=== PATIENT | female | born 1985 | race Caucasian/White ===

== ENCOUNTER 2024-10-08 16:22 | Emergency (ER) | payer OTHER, SELFPAY ==
--- OUTSIDE RECORDS SUMMARY | 2023-03-05 05:15 | XMS_ITS | Continuity of Care Document ---
Author Organization [facility] Address [address] [place] [address] Phone Care Team Providers Care Small Equipment Operator Name Role Phone Devin Silver MD Unavailable Unavailable Procedures Procedure Date ULTRASOUND RETROPERITONEAL ( AORTA, RENAL, NODES) REAL TIME W/ DOCUMENTATION, CO Advance Directives Directive Yes / No Effective Date File Name No Information Encounters Encounter Description Practice Location Reason(s) For Visit Diagnoses Date Provider Providers Copied on Encounter [facility], [address], [place], [place], [id number], [place] tel:[phone] [facility] No Information Adrianne Beltran. [address] , [place], [place], [id number], [place]. tel:[phone] Referring Provider: Candida Junior, [address] [address], [place], [address]. tel:[phone] Family History Family Member Type Diagnosis Age At Onset No Information Payers Payer name Insurance type Covered green party ID Authoriza tion(s) R [facility] [id number] Social History Type Description Quantity Date Captured Comments Sex Female Smoking Status No Information Chief Complaint And Reason For Visit No Information Reason For Referral Reason For Referral No Information History Of Present Illness Encounter Date Complaint History Of Prese nt Illness No Information Functional Status Date Functional Assessmen t No Information Instructions Date Instruction Additional Infor mation No Information Assessments Type Assessment Date No Information Patient Care Teams Name Effective Dates (start - stop) Status Members No Information
--- OUTSIDE RECORDS SUMMARY | 2024-10-08 16:24 | XMS_ITS | Continuity of Care Document ---
Author Name [facility] Organization [facility] Care Team Providers Care Disability Coordinator Name Role Phone [facility] Unavailable Unavailable Social History Combined list of available smoking, tobacco, and other social history from Department of Defense and Veterans Affairs facilities. Social History Type Response Date Comment Sourc e This section is an empty social history section. DoD
--- OUTSIDE RECORDS SUMMARY | 2024-10-08 16:24 | XMS_ITS | Continuity of Care Document ---
Author Name [facility] Organization [facility] Care Team Providers Care Manager Fine Dining Name Role Phone [facility] Unavailable Unavailable Social History Combined list of available smoking, tobacco, and other social history from Department of Defense and Veterans Affairs facilities. Social History Type Response Date Comment Sourc e This section is an empty social history section. DoD
--- OUTSIDE RECORDS SUMMARY | 2024-10-08 16:26 | XMS_ITS | Clinical Summary ---
Author Organization [facility] Address [address], [facility] [address] [place] [address] Phone Care Team Providers Care Bone Char Kiln Tender Name Role Phone Karyn Patterson Ha PECK, SILK EXAMINER Primary Care Provide r Guicho Mcintosh DO Unavailable [phone] Chucho Herron MD Unavailable [phone] Allergies Active Allergy Reactions Criticality Noted Date Comments Azithromycin Nausea,Other (see Comments) Low 03/18/2018 GI upset Montelukast Other (see Comments) Low 03/18/2018 Possible allergy- pt not sure Prednisone Other (see Comments) Low 01/03/2019 Bloody stool and stomach cramps Medications Etanercept (Enbrel SureClick) 50 MG/ML Solution Auto-injector 11/19/2021 Activ e Cyanocobalamin (VITAMIN B-12) 1000 MCG Tablet Take 1,000 mcg by mouth. Active clobetasol (TEMOVATE) 0.05 % Cream 11/02/2018 Active Cetirizine HCl 10 MG Capsule Take by mouth. Active TURMERIC-CARMEN PO Take by mouth. Active MAGNESIUM PO Take by mouth. Active Ascorbic Acid (VITAMIN C PO) Take by mouth. Active Pyridoxine HCl (B-6 PO) Take by mouth. Active Active Problems Problem Noted Date Diagnosed Date Anxiety 07/08/2022 Asthma 07/08/2022 Neuropathy 07/08/2022 Seasonal allergic rhinitis due to pollen 022 RA (rheumatoid arthritis) 07/23/2021 Gastroesophageal reflux disease 01/02/2019 Environmental and seasonal allergies 01/02/2019 Immunizations Immunization Administration Dates Next Due Influenza Vaccine, Quadrivalent, PF 01/10/2021,1 02/27/2018 TDAP Vaccine 01/10/2021 Family History Relation Name Status Comments Brother Alive Father Alive Mother Alive Sister Alive Social History Tobacco Use Types Packs/Day Years Used Date Smoking Tobacco: Never Smokeless Tobacco: Never Tobacco Cessation:Counseling Given: No Alcohol Use Standard Drinks/Week Comments Not Currently 0 (1 standard drink = 0.6 oz pur e alcohol) Sexually Active Control Partners Comments Yes Comments Unknown Sex and Gender Information Value Date Recorded Sex Assigned at Not on file Legal Sex Female 3:48 PM CDT Gender Identity Not on file Sexual Orientation Not on file Last Filed Vital Signs Vital Sign Reading Time Taken Comments Blood Pressure 120/72 04/29/2023 2:44 PM CDT Pulse 90 04/29/2023 2:44 PM CDT Temperature 36.3 C (97.3 F) 04/29/2023 2:44 PM CDT Respiratory Rate 18 04/29/2023 2:44 PM CDT Oxygen Saturation 99% 04/29/2023 2:44 PM CDT Inhaled Oxygen Concentration - - Weight 80.5 kg (177 lb 8 oz) 04/29/2023 2:44 PM CDT Height 152.4 cm (5') 04/29/2023 2:44 PM CDT Body Mass Index 34.67 04/29/2023 2:44 PM CDT Plan of Treatment Health Maintenance Due Date Last Done Comments Hepatitis C Virus (HCV) Screening 1986 Hepatitis B Immunization (1 of 3 - 19+ 3-dose series) 2005 Pneumococcal Immunization Combined (1 of 2 - PCV) 2005 Pap Smear 2007 Human Papillomavirus (HPV) Immunization (1 - 3-dose SCDM series) 2013 Cervical Cancer Screening (CCS) 2016 HPV/Cotest 2016 SARS-COV-2 Immunization (3 - Pfizer risk series) 07/09/2020 06/11/2020, 05/17/2020 Influenza Immunization (#1) 2024 12/0 04/2020, 12/28/2018 Td Immunization Every 10 Yea rs (Adults With 1 Tdap) 01/10/2031 01/10/2021 Respiratory Syncytial Virus (RSV) Immunization (Adult) (1 - 1-dose 75+ series) 2061 DTaP/Tdap/Td Immunization Discontinued 01/10/2021 Meningococcal Immunization (ACWY) Aged Out No longer eligible based on patient's age to complete this topic Rotavirus Immunization Aged Out No lo nger eligible based on patient's age to complete this topic Insurance Care Teams Bone Char Kiln Tender Relationship Specialty Start Date End Date Karyn Patterson, HEAD STILL OPERATOR, SILK EXAMINER [address] [address] PCP - General Advanced Practice Nurse 06/15/22 Guicho Mcintosh DO [address] [place] [id number] Consulting Physician Oncology 06/15/22 Chucho Herron MD [address] [id number] Referring Provider Neuromuscular Medicine 06/15/22
--- OUTSIDE RECORDS SUMMARY | 2024-10-08 16:27 | XMS_ITS | Clinical Summary ---
Author Organization [facility] Address [address] [facility] [place] [address] Care Team Providers Care Senior Environmental Technician Name Role Phone LeonardoKaryn perry RADIO EQUIPMENT INSTALLER-BIN WORKER Primary Care Provider Source Comments [facility],non-owned Affiliates and Associated Physician Practices is amultiple site organization consisting of ambulatory clinics and hospital sitesin [place], [place], [place] and [place]. This disclosure is being madepursuant to the Care Everywhere program and may not contain all information available regarding this patient. Last updated 17.[facility] Thubrikar Aortic Valve Social History Tobacco Use Types Packs/Day Years Used Date Smoking Tobacco: Never Assessed PHQ-2 Answer Date Recorded PHQ2 TOTAL SCORE 0 05/19/2022 Comments Unknown Sex and Gender Information Value Date Recorded Sex Assigned at Not on file Legal Sex Female 4:13 PM WARRANTY CLERK Gender Identity Not on file Sexual Orientation Not on file Plan of Treatment Health Maintenance Due Date Last Done Comments HIV SCREENING 2001 HEPATITIS C SCREENING 02/28/2004 DTAP/TDAP/TD VACCINES (1 - Tdap) 2005 HEPATITIS B VACCINE (1 of 3 - 19+ 3-dose series) 2005 PAP SMEAR 2007 HPV VACCINE (1 - 3-dose SCDM series) 2013 COVID-19 VACCINE (2023-2 5 season) 2023 06/11/2020, 05/17/2020 DEPRESSION SCREENING 02/09/2024 05/19/2022 INFLUENZA VACCINE (#1) 2024 , 12/28/2018 ZOSTER VACCINE (1 of 2) 2036 HIB VACCINE Aged Out No longer eligi ble based on patient's age to complete this topic MENINGOCOCCAL (Group B) VACCINE SHARED DECISION-MAKING Aged Out No longer eligible based on patient's age to complete this topic MENINGOCOCCAL GROUPS A/C/Y/W VACCINE Aged Out No longer eligible b ased on patient's age to complete this topic PNEUMOCOCCAL VACCINE Aged Out No long er eligible based on patient's age to complete this topic Care Teams Senior Environmental Technician Relationship Specialty Start Date End Date Karyn Patterson, RADIO EQUIPMENT INSTALLER-BIN WORKER [address] [facility], [address] [place] [address] PCP - General 03/03/22
--- OUTSIDE RECORDS SUMMARY | 2024-10-08 16:27 | XMS_ITS | Clinical Summary ---
Author Organization [facility] Address [address] [place] [address] Care Team Providers Care Disability Liaison Officer Name Role Phone Karyn Patterson NP Primary Care Provide r Allergies Active Allergy Reactions Criticality Noted Date Comments Azithromycin Stomach upset Low 03/18/2018 Dried Beans/Legumes Stomach upset High 04/09/2022 Down a couple of days with stomach upset Montelukast Other (See comments) Low 03/18/2018 Possible allergy- pt not sure Peanut Oil Anaphylaxis High 06/15/2018 Prednisone Other (See comments) Low 01/03/2019 Bloody stool and stomach cramps Medications albuterol HFA (PROVENTIL HFA,VENTOLIN HFA,PROAIR HFA) 90 mcg/actuation inhaler Inhale 2 puffs every 6 (six) hours as needed for wheezing Active fluticasone propionate (FLONASE) 50 mcg/actuation nasal spray Administer 1 spray into each nostril daily Active acetaminophen-a spirin-caffeine (EXCEDRIN MIGRAINE) 250-250-65 mg per tablet Take 1 tablet by mouth every 6 (six) hours as needed Active cyanocobalamin (Vitamin B-12) 1,000 mcg tabletIndicatio ns:Prevention of Vitamin B12 Deficiency Take 1 tablet (1,000 mcg total) by mouth daily Active [id number]-is a-epa-fish oil 400 mcg-35 mg -25 mg-5 mg tablet,chewable Take by mouth Active pyridoxine (VITAMIN B-6) 500 mg tablet Take 1 tablet (500 mg total) by mouth daily Active acetaminophen (TYLENOL) 500 mg tablet Take 2 tablets (1,000 mg total) by mouth every 6 (six) hours as needed Active etanercept (EnbreL SureClick) 50 mg/mL (1 mL) pen injector 2 Active EPINEPHrine 0.3 mg/0.3 mL auto-injection syringeIndicati ons:Anaphylaxis Inject 0.3 mL (0.3 mg total) into the muscle as instructed as needed for anaphylaxis for up to 1 day 1 each 1 2 Active Additional Information Patient not taking.Reported on 10/29/2023 azelastine (ASTELIN) 137 mcg (0.1 %) nasal spray Administer 2 sprays into each nostril 2 (two) times a day Use in each nostril as directed 120 mL 2 2 Active Additional Information Patient taking differently:2 spray each nostrilAs needed, Use in each nostril as directed, Reported on 10/29/2023 TURMERIC ROOT-CARMEN ROOT EXT ORAL Take 1 capsule by mouth daily Active ascorbic acid (VITAMIN C) 250 mg tablet Take 2 tablets (500 mg total) by mouth daily Active cetirizine 10 mg capsule Take by mouth Activ e Active Problems Problem Noted Date Diagnosed Date Uncomplicated asthma 01/08/2022 Non-seasonal allergic rhinitis due to fungal spo res 01/08/2022 Seasonal allergic rhinitis due to pollen 022 Food intolerance 01/08/2022 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 Seronegative arthritis 01/03/2019 Social History Tobacco Use Types Packs/Day Years Used Date Smoking Tobacco: Never Passive Smoke Exposure: Past Tobacco Cessation:Counseling Given: Not Answered Alcohol Use Standard Drinks/Week Comments Not Currently 0 (1 standard drink = 0.6 oz pur e alcohol) Personal Safety Answer Date Recorded Getting School Help Needed Not on file 01/30 Comments Unknown Sex and Gender Information Value Date Recorded Sex Assigned at Not on file Legal Sex Female 3:42 PM BLIND ESCORT Gender Identity Not on file Sexual Orientation Not on file Obstetrics History Last Filed Vital Signs Vital Sign Reading Time Taken Comments Blood Pressure 120/76 10/29/2023 10:53 AM CDT Pulse 78 10/29/2023 10:53 AM CDT Temperature 37.1 C (98.8 F) 10/29/2023 10:53 AM CDT Respiratory Rate - - Oxygen Saturation 96% 10/29/2023 10: 53 AM CDT Inhaled Oxygen Concentration - - Weight 78.4 kg (172 lb 14.4 oz) 024 10:53 AM CDT Height 152.4 cm (5') 10/29/2023 10:53 AM CDT Body Mass Index 33.77 10/29/2023 10:53 AM CDT Plan of Treatment Health Maintenance Due Date Last Done Comments Cervical Cancer Screening 1986 Depression Screening 1986 Hepatitis C Screening 1986 Varicella Vaccines (1 of 2 - 13+ 2-dose series) 1999 Hepatitis B Screening 2004 Regular Well Visit/Exam 18-64 2004 Pneumococcal vaccine <65 (1 of 2 - PCV) 2005 HPV Vaccines (1 - 3-dose SCDM series) 2013 Covid-19 Vaccine ( - season) 10/10/202305/2020, 05/17/2020 Influenza Vaccine (#1) 2024 01/10/2021, 2018 DTaP/Tdap/Td Vaccine (2 - Td or Tdap) 01/10/203104/2020 Insurance [facility] HMO/PPO Address: [facility] [id number] [place] [id number] [facility] H[facility]/PPO Address: [address] [address] Care Teams Disability Liaison Officer Relationship Specialty Start Date End Date Karyn Patterson NP [address] [address] PCP - General Nurse Practitioner 11/28/18
--- NOTE | 2024-10-08 16:29 | ED_ITS ---
HPI - URI/Sore Throat General Chief Complaint: Upper Respiratory Infection Stated Complaint: cold symptoms Patient presents to the [facility] accompanied by spouse with complaints of worsening sinus and upper respiratory that started 1 week ago. Patient noted the 1st couple days of symptoms she did also notice a low-grade fever but this has resolved. Patient reports significant sinus pressure, nasal congestion, nasal drainage, sore throat, pressure in ears, headache, wet cough, and shortness of breath. Patient reports taking daily Zyrtec, adding Flonase and albuterol inhaler as needed with some relief of symptoms. Patient reports she was scheduled this week to take her Enbrel and she did not take that dosing this week as well. Denies dizziness, drainage from ears, difficulty swallowing, nausea, vomiting, diarrhea. Related Data Home Medications ?Medication ?Instructions ?Recorded ?Confirmed ?Last Taken ?Type etanercept 50 mg/mL (1 mL) mg subcut 10/08/24 Unknown History subcutaneous pen injector (Enbrel SureClick) Allergies Allergy/AdvReac Type Severity Reaction Status Date / Time peanut Allergy Severe Anaphylactic Verified 10/08/24 16:33 Shock Review of Systems Constitutional: Constitutional: Reports as per HPI, Denies chills, Reports fatigue, Reports fever(s) and Denies weakness Eyes: Eyes: Reports no additional eye complaints ENT: Reports as per HPI, Denies vertigo, Denies dizziness, Reports nasal con gestion and Reports sore throat Cardiovascular: Cardiovascular: Reports no additional cardiovascular complaints Respiratory: Respiratory: Reports as per HPI, Reports chest congestion, Reports cough, Denies dyspnea and Denies wheezing Gastrointestinal: Gastrointestinal: Reports as per HPI, Denies abdominal pain, Denies diarrhea, Denies nausea and Denies vomiting Genitourinary: Genitourinary: Reports no additional female genitourinary complaints Musculoskeletal: Musculoskeletal: Reports as per HPI and Denies myalgias Integumentary/Breasts: Skin/Breast: Reports as per HPI, Denies erythema and Denies rash Neurologic: Reports as per HPI, Denies vertigo, Denies dizziness, Reports headache(s), Denies focal weakness, Denies numbness and Denies weakness Psychiatric: Psychiatric: Reports no additional psychiatric complaints Endocrine: Endocrine: Reports no additional endocrine complaints Hematologic/Lymphatic: Hematologic/Lymphatic: Reports no additional hematologic/lymphatic complaints Allergic/Immunologic: Allergic/Immunologic: Reports as per HPI Comments: Seasonal allergy Exam Const: General: healthy appearing and no acute distress Nutritional Appearance: well nourished Orientation/consciousness: patient oriented x3 Limitations: no limitations HENMT: Head: normal to inspection Ears: external ears normal and TM's abnormal bilaterally ( right TM cloudy/yellow fluid no erythema, loss of bony landmarks noted) Face/Nose/Sinus: Normal external nose present and nares abnormal ( erythema and minimal edema noted.) Face and sinus: normal facial exam and sinus tenderness ( Bilateral) maxillary Mouth: Yes Normal oral and palatal mucosa present, Yes lip normal and Yes moist mucous membranes Throat: posterior oropharynx abnormal ( moderate erythema) Other: left TM normal Neck: Neck: normal visual inspection and no lymphadenopathy Resp: Effort & Inspection: normal respiratory effort Auscultation: clear to auscultation bilaterally Other: percussion normal Cardio: Rate: regular rate Rhythm: regular rhythm Skin: General skin exam: normal color Rashes: no rashes Wounds: no wounds Neuro: General: patient oriented x3 and moves all extremities Speech: normal speech Gait exam (Neuro): Normal gait present Psych: Mental Status: mental status grossly normal Affect: normal affect Attitude: cooperative Course Course Level of Care: Express Care Visit MDM - URI/Sore Throat MDM Narrative Medical decision making narrative: recommend continue to skip your Enbrel and speak with your provider about when to start this again. The patient was evaluated by myself in the express care. History is obtained from patient who is an independent historian and physical exam was performed. Available medical records were reviewed at this time. Exam findings show no acute concerns or changes; patient is non-toxic appearing and is in no distress. Patient is appropriate for outpatient treatment and follow-up. I have evaluated and discussed social determinants of health with the patient that could potentially impact subsequent diagnosis and treatment plans. Differential diagnosis and treatment plan were discussed with the patient. Patient agrees with discussion and after shared medical decision making agrees with plan of care. All questions were answered to the patient's satisfaction. Differential Diagnosis Differential diagnosis: Likely upper respiratory infection, otitis media, sinusitis, viral infection, influenza and pharyngitis Medical Records Attestation: I reviewed the patient's medical records. Discharge Plan Discharge Clinical Impression: Sinusitis Patient Disposition: Home Condition: Stable Instructions: Antibiotic Form, Sinusitis (ED) Additional Instructions: Return to urgent care or go to the ER for new or worsening symptoms. Continue to take Tylenol or Motrin for pain. Use a humidifier or vaporizer at night. Take Medications as prescribed. Drink plenty of water. 8-10 glasses per day. Use flonase 2 times per day for 5 days then as needed Take mucinex 2 times per day and be sure to take with 8oz of water. Follow up with Primary provider if not getting better. Take the full dose of steroids as directed to decrease inflammation and open up sinus and airway. start these tomorrow since we were later in the day. Increase water intake to 8-10 glasses per day. take the antibiotics as directed. When taking antibiotics use a daily pro biotic or yogurt daily to help with diarrhea and upset stomach. Patient Language: Danish Prescriptions: New amoxicillin-pot clavulanate 875-125 mg tablet 1 tablet PO Q12H Qty: 20 0RF Rx Instructions: Take with food methylprednisolone [Medrol (Watson)] 4 mg tablets,dose pack See Rx Instructions .ROUTE .COMPLEX Qty: 21 0RF Rx Instructions: for 6 days No Action Enbrel SureClick 50 mg/mL (1 mL) pen injector SUBCUT Follow-up/Referrals: Leonardo,Karyn Wills APN [Primary Care Provider] Time of Disposition: 16:50
--- OUTSIDE RECORDS SUMMARY | 2024-10-08 16:30 | XMS_ITS | Encounter Summary ---
Author Organization [facility] Address [facility] [place] [address] Care Team Providers Care Car Retarder Operator Name Role Phone Karyn Patterson [facility] Primary Care Provider + Chucho Herron MD Unavailable [phone] Verona Courtney PT Unavailable Encounter Details Date Type Department Care Team (Late st Contact Info) Description 07/31/2020 X2TV Message [facility] [address] [place] [address] Karyn Patterson, [facility] [address] [facility] [address] [place] [address] RE: Follow Up/Update Social History Tobacco Use Types Packs/Day Years Used Date Smoking Tobacco: Never Smokeless Tobacco: Never Alcohol Use Standard Drinks/Week Comments No 0 (1 standard drink = 0.6 oz pur e alcohol) OCCASIONAL AUDIT-C Answer Date Recorded Frequency of Alcohol Consumption Never 01/02/2019 Average Number of Drinks Not on file 019 Frequency of Binge Drinking Not on file 12/10 PHQ-2 Answer Date Recorded PHQ-2 Score - If the patient scores above 3, please move on to questions 3-9 0 05/30/2020 Comments No Sex and Gender Information Value Date Recorded Sex Assigned at Female 03/01/2024 8:58 AM BAIL BONDING AGENT Legal Sex Female 5:04 PM BAIL BONDING AGENT Gender Identity Not on file Sexual Orientation Not on file documented as of this encounter Functional Status * RETIRED Are you deaf or do you have serious difficulty hearing Answer Date of Assessment Author Status No 05/05/2019 11:42 AM CDT Acti ve * RETIRED Are you blind or do you have serious difficulty seeing, even when wearing glasses? Answer Date of Assessment Author Status No 05/05/2019 11:42 AM CDT Acti ve * Do you have serious difficulty walking or climbing stairs? Answer Date of Assessment Author Status No 05/05/2019 11:42 AM CDT Alethea Mercedes RN Active * Do you have difficulty dressing or bathing? Answer Date of Assessment Author Status No 05/05/2019 11:42 AM ZEFERINOT Alethea Mercedes RN Active * Because of a physical, mental, or emotional condition, do you have difficulty doing errands alone such as visiting a doctor's office or shopping? Answer Date of Assessment Author Status No 05/05/2019 11:42 AM CDT Alethea Mercedes RN Active documented as of this encounter Mental Status * Because of a physical, mental, or emotional condition, do you have serious difficulty concentrating, remembering, or making decisions? Answer Entry Date Author Status No 05/05/2019 11:42 AM CDT Alethea Mercedes RN Active documented in this encounter Plan of Treatment Upcoming Encounters Date Type Department Care Team (Late st Contact Info) Description 10/18/2024 9:00 AM CDT Appointment [facility] [address] [place] [address] Carmelo Curiel MD [address] [facility] [address] [place] [address] 11/15/2024 9:00 AM CDT Appointment [facility] [address] [place] [address] Carmelo Curiel MD [address] [address] 11/21/2024 9:00 AM CDT Office Visit [facility] Multispecialty Care - [facility] [address] [facility], [address] [place] [address] Chucho Herron MD [address] [place] [address] 12/13/2024 9:00 AM BAIL BONDING AGENT Appointment [facility] [address] [place], [place] [address] Carmelo Curiel MD [address] [facility] [address] [place] [address] documented as of this encounter Visit Diagnoses Not on filedocumented in this encounter Additional Health Concerns Infection Onset Date Last Indicated Resolved Time COVID-19 Rule Out 07/24/2021 07/24/2021 07/24/2021 10:22 AM CDT COVID-19 Rule Out 04/16/2023 04/16/2023 04/16/2023 10:43 AM BAIL BONDING AGENT Influenza - Seasonal 04/16/2023 04/16/2023 024 12:32 AM CDT documented as of this encounter Care Teams Car Retarder Operator Relationship Specialty Start Date End Date Karyn Patterson, [facility]- [address]01 [facility], [facility] [address] [place], [place] [id number] PCP - General NURSE PRACTITIONER 03/11/18 Chucho Herron MD [address] [place] [address] Physician NEUROMUSCULOSKELETAL MEDICINE 02/08/22 Verona Courtney, PT [address] [place], [place] [address] Physical Therapist PHYSICAL THERAPY 09/01/22 11/07/22 documented as of this encounter
--- OUTSIDE RECORDS SUMMARY | 2024-10-08 16:30 | XMS_ITS | Encounter Summary ---
Author Organization [facility] Address [facility] [place] [address] Care Team Providers Care Domestic Housekeeper Name Role Phone Karyn Patterson [facility] Primary Care Provider + Chucho Herron MD Unavailable [phone] Encounter Details Date Type Department Care Team (Late st Contact Info) Description 07/13/2024 [employer] Message [address] [phone] Karyn Patterson, [facility] [address]01 [facility] [address] [place] [address] can I have new blood tests ordered? Social History Tobacco Use Types Packs/Day Years Used Date Smoking Tobacco: Never Passive Smoke Exposure: Never Smokeless Tobacco: Never Alcohol Use Standard Drinks/Week Comments Yes 0 (1 standard drink = 0.6 oz pur e alcohol) OCCASIONAL AUDIT-C Answer Date Recorded Frequency of Alcohol Consumption Never 01/02/2019 Average Number of Drinks Not on file 019 Frequency of Binge Drinking Not on file 12/10 PHQ-2 Answer Date Recorded Patient Health Questionnaire-2 Score 0 06/05/2024 Comments No Sex and Gender Information Value Date Recorded Sex Assigned at Female 03/01/2024 8:58 AM AUTOMOTIVE PAINTER Legal Sex Female 5:04 PM AUTOMOTIVE PAINTER Gender Identity Not on file Sexual Orientation Not on file documented as of this encounter Functional Status * RETIRED Are you deaf or do you have serious difficulty hearing Answer Date of Assessment Author Status No 01/24/2021 1:47 PM AUTOMOTIVE PAINTER Activ e * RETIRED Are you blind or do you have serious difficulty seeing, even when wearing glasses? Answer Date of Assessment Author Status No 01/24/2021 1:47 PM AUTOMOTIVE PAINTER Activ e * Do you have serious difficulty walking or climbing stairs? Answer Date of Assessment Author Status No 01/24/2021 1:47 PM Mitali Brito, ARLEN Active * Do you have difficulty dressing or bathing? Answer Date of Assessment Author Status No 01/24/2021 1:47 PM Mitali Brito RN Active * Because of a physical, mental, or emotional condition, do you have difficulty doing errands alone such as visiting a doctor's office or shopping? Answer Date of Assessment Author Status No 01/24/2021 1:47 PM Mitali Brito RN Active documented as of this encounter Mental Status * Because of a physical, mental, or emotional condition, do you have serious difficulty concentrating, remembering, or making decisions? Answer Entry Date Author Status No 01/24/2021 1:47 PM Mitali Brito, RN Active documented in this encounter Progress Notes * Myra Malik RN - 07/17/2024 1:50 PM CDT -C-Reactive protien, -SED rate, erythrocyte (ESR) -Rheumatoid Factor, Quant -Pregnenolone, LC/MS/MS -DHT Dihydrotestosterone -Sex hormone binding globulin -FSH, follicle stim hormone -Insulin, Total -DHEA-sulfate -Testosterone, free and total -Progesterone -Estradiol -Prolactin -Comprehensive Metabolic Panel documented in this encounter Plan of Treatment Upcoming Encounters Date Type Department Care Team (Late st Contact Info) Description 10/18/2024 9:00 AM CDT Appointment [facility] [address] [place] [address] Carmelo Curiel MD [address] [facility] [address] [place] [address] 11/15/2024 9:00 AM CDT Appointment [facility] [address] [place] [address] Carmelo Curiel MD [address]01 [facility] [address] [place] [address] 11/21/2024 9:00 AM CDT Office Visit [facility] Medical Group Multispecialty Care - [facility] [address] [facility], [address] [place] [phone] Chucho Herron MD 3 [place] [address] 12/13/2024 9:00 AM AUTOMOTIVE PAINTER Appointment [facility] [address] [place] [address] Carmelo Curiel MD [address] [facility] [address] [place], [place] [phone] documented as of this encounter Results * (ABNORMAL) COMPREHENSIVE METABOLIC PANEL (07/19/2024 10:29 AM CDT) [facility] GLUCOSE 88 70 - 99 MG/DL 07/19/2024 1:04 PM CDT [facility] BUN 13 7 - 18 MG/DL 07/19/2024 1:04 PM CDT [facility] CREATININE S/P/B 0.90 0.55 - 1.02 MG/DL 07/19/2024 1:04 PM CDT [facility] SODIUM S/P/B 142 136 - 145 MMOL/L 07/19/2024 1:04 PM CDT [facility] POTASSIUM S/P/B 4.3 3.5 - 5.1 MMOL/L 07/19/2024 1:04 PM [facility] CHLORIDE S/P/B 103 100 - 108 MMOL/L 07/19/2024 1:04 PM [facility] CO2 32.7(H) 21 - 32 MMOL/L 07/19/2024 1:04 PM [facility] CALCIUM S/P/B 8.9 8.5 - 10.1 MG/DL 07/19/2024 1:04 PM [facility] BILIRUBIN TOTAL S/P/B 0.5 0.2 - 1.2 MG/DL 07/19/2024 1:04 PM [facility] Comment: THIS ASSAY IS NOT RECOMMENDED FOR PATIENTS UNDERGOING TREATMENT WITH ELTROMBOPAG DUE TO THE POTENTIAL FOR FALSELY ELEVATED RESULTS. TOTAL PROTEIN S/P/B 7.7 6.4 - 8.2 G/DL 07/19/2024 1:04 [facility] ALBUMIN S/P/B 3.8 3.4 - 5.0 G/DL 07/19/2024 1:04 PM [facility] AST 11(L) 15 - 37 U/L 07/19/2024 1:04 PM [facility] ALT 18 14 - 55 U/L 07/19/2024 1:04 PM [facility] ALKALINE PHOSPHATASE S/P/B 74 50 - 136 U/L 07/19/2024 1:04 PM [facility] ANION GAP 6.3 5 - 15 MMOL/L 07/19/2024 1:04 [facility] BUN CREATININE RATIO 14.4 6 - 26 07/19/2024 1:04 PM [facility] A/G RATIO 1.0 1.0 - 2.0 RATIO 07/19/2024 1:04 PM CDT [facility] GFR ESTIMATE 84(L) >90 ML/MIN/1.7 3 M2 07/19/2024 1:04 PM CDT [facility] Comment: NOTE: eGFR is not calculated for patients <18 years of age. This is an estimated GFR calculation using the new CKD EPI creatinine equation without race and so does not require a correction factor for race. This estimated GFR should not be used for calculating drug doses. 07/19/2024 10:2 9 AM CDT Karyn Bonner Leonardo [facility] Final Re sult [facility] [address] [place] [address], [place] [phone] * PROLACTIN (07/19/2024 10:29 AM CDT) PROLACTIN 3.8 NG/ML 07/19/2024 8:17 PM CDT [facility] Comment:FEMALE REFERENCE RAN GE (NON-): 4.8-23.3 07/19/2024 10:2 9 AM CDT [facility] Leonardo [facility] Final Re sult [facility] [address] [place] [address], [place] [phone] * ESTRADIOL (07/19/2024 10:29 AM CDT) ESTRADIOL (E2) 33 see note pg/mL 07/21/2024 10:16 PM CDT [facility] THOMAS BROWN Comment: Unable to flag abnormal result(s), please refer to reference range(s) below: Females: Follicular Phase: 19 - 144 pg/mL Mid-Cycle: 64 - 357 pg/mL Luteal Phase: 56 - 214 pg/mL Post-Menopausal: <= 31 pg/mL Reference range established on post-pubertal patient population. No pre-pubertal reference range established using this assay. For any patients for whom low Estradiol levels are anticipated (e.g. males, pre-pubertal children, and hypogonadal/post-menopausal females), the [employer] Estradiol, Ultrasensitive, LCMSMS assay is recommended (order code 99468). Please note: Patients being treated with the drug fulvestrant [Faslodex(R)] have demonstrated significant interference in immunoassay methods for estradiol measurement. The cross reactivity could lead to falsely elevated estradiol test results leading to an inappropriate clinical assessment of estrogen status. [employer] order code [id number], Ultrasensitive LC/MS/MS demonstrates negligible cross reactivity with fulvestrant. Test Performed by [facility] [employer], [address] [place] [address] Kumar Hough M.D., Ph.D., Director of Laboratories , CLIA [id number] 07/19/2024 10:2 9 AM CDT Karyn Patterson [facility] Final Re sult [facility] [address] [place] [phone], * PROGESTERONE (07/19/2024 10:29 AM CDT) PROGESTERONE 0.9 see note ng/mL 07/21/2024 10:16 PM CDT [facility] Comment: Unable to flag abnormal result(s), please refer to reference range(s) below: Female: Follicular Phase <1.0 ng/mL Luteal Phase 2.6 - 21.5 ng/mL Post Menopausal <0.5 ng/mL : 1st Trimester 4.1 - 34.0 ng/mL 2nd Trimester 24.0 - 76.0 ng/mL 3rd Trimester 52.0 -302.0 ng/mL Test Performed by [facility] [employer], [address] [place] [address] Kumar Hough M.D., Ph.D., Director of Laboratories , CLIA [id number] 07/19/2024 10:2 9 AM CDT Karyn Riceegler [facility] Final Re sult [facility] [address] [place], [place] , [place] [phone] * INSULIN,TOTAL (07/19/2024 10:29 AM CDT) INSULIN 7.4 <=18.4 uIU/mL 07/21/2024 10:16 PM CDT [facility] [employer] THOMAS LY Comment: Risk: Optimal < or = 18.4 Moderate NA High >18.4 Adult cardiovascular event risk category cut points (optimal, moderate, high) are based on Insulin Reference interval studies performed at [employer] in 2021. Test Performed by [facility], [employer] [place], [address] [place] [address] Kumar Hough M.D., Ph.D., Director of Laboratories , CLIA [id number] 07/19/2024 10:2 9 AM CDT Karyn Ha Patterson [facility] Final Re sult Performing Organization Address City/[facility]/ZIP Co de Phone Number [facility] [address] [place], [place] , [place] [phone] * FSH, FOLLICLE STIM HORMONE (07/19/2024 10:29 AM CDT) FSH 7.3 MIU/ML 07/19/2024 8:17 PM CDT [facility] Comment: REFERENCE RANGES FOR FEMALES: FOLLICULAR 3.5-12.5 MID-CYCLE 4.7-21.5 LUTEAL 1.7-7.7 POSTMENOPAUSAL 25.8-134.8 07/19/2024 10:2 9 AM CDT Karyn Riceegler [facility] Final Re sult [facility] [address] [place] [address], [place] [phone] * SEX HORMONE BINDING GLOBULIN (07/19/2024 10:29 AM CDT) SEX HORMONE BINDING GLOBULIN 35 17 - 124 nmol/L 07/22/2024 12:00 PM CDT [employer] THOMAS BROWN Comment: Test Performed by [facility], [address] [place], [place] Kumar Hough M.D., Ph.D., Director of Laboratories , [place] [id number] 07/19/2024 10:2 9 AM CDT Karyn Bonner Leonardo [facility] Final Re sult Performing Organization Address [facility] Co de Phone Number [employer] [place] [address] [place] [address], [place] [phone] * DIHYDROTESTOSTERONE, DHT (07/19/2024 10:29 AM CDT) DIHYDROTESTOSTERONE LCMSM 9 < OR = 20 ng/dL 07/27/2024 12:02 AM CDT [employer] JEWELS AMAYA Comment: This test was developed and its analytical performance characteristics have been determined by [employer]. It has not been cleared or approved by the FDA. This assay has been validated pursuant to the CLIA regulations and is used for clinical purposes. Test performed by [facility] [place] [address] [place] [address] Director Of Sales Marketing: Selene Flores MD,PHD,DELFINO Test Reported by [facility] [place], [address] [place] [address] Kumar Hough M.D., Ph.D., Director of Laboratories , CLIA [id number] 07/19/2024 10:2 9 AM CDT Karyn M Leonardo [facility] Final Re sult Performing Organization Address [facility] Co de Phone Number [employer] [place] [phone] [place], [place] , * PREGNENOLONE, LC/MS/MS (07/19/2024 10:29 AM CDT) PREGNENOLONE 116 22 - 237 ng/dL 07/29/2024 2:23 PM CDT [facility] STEPHANIE Comment: This test was developed and its analytical performance characteristics have been determined by [employer]. It has not been cleared or approved by the FDA. This assay has been validated pursuant to the CLIA regulations and is used for clinical purposes. Test performed by [employer] [place] [address] [place] [address] Director Of Sales Marketing: Selene Flores MD,PHD,DELFINO Test Reported by [facility] [employer] [place], [address] [place] [address] Kumar Hough M.D., Ph.D., Director of Laboratories , CLIA [id number] 07/19/2024 10:2 9 AM CDT Karyn Patterson [facility] Final Re sult Performing Organization Address City/[facility]/ZIP Co de Phone Number [employer] [facility] [address] [place] [address], [place] [phone] * RHEUMATOID FACTOR, QUANT (07/19/2024 10:29 AM CDT) RHEUMATOID FACTOR <10 <15 IU/ML 07/19/2024 8:17 PM CDT [facility] 07/19/2024 10:2 9 AM CDT Karyn Bonner Leonardo [facility] Final Re sult [facility] [address] [place] [address], [place] [phone] * SED RATE, ERYTHROCYTE (ESR) (07/19/2024 10:29 AM CDT) ESR 4 <20 MM/HR 07/19/2024 12:27 PM CDT [facility] 07/19/2024 10:2 9 AM CDT Karyn Bonner Leonardo [facility] Final Re sult [facility] [address] [place] [address], [place] [phone] * (ABNORMAL) C-REACTIVE PROTEIN (07/19/2024 10:29 AM CDT) C-REACTIVE PROTEIN 0.30(H) <0.3 mg/dL 07/19/2024 1:04 PM CDT [facility] 07/19/2024 10:2 9 AM CDT Karyn Riceegler [facility] Final Re sult [facility] [address] [place] [address], documented in this encounter Visit Diagnoses Diagnosis Fatigue, unspecified type- Primary Perimenopausal Symptomatic menopausal or female climacteric states documented in this encounter Additional Health Concerns Assessment Noted Time PHQ-9 Depression Total Score: 12 05/13/ 022 2:49 PM CDT documented as of this encounter Care Teams Domestic Housekeeper Relationship Specialty Start Date End Date Karyn Patterson, SENIOR ARCHITECTURAL DESIGNER- [address] [facility], [address] [place] [address] PCP - General NURSE PRACTITIONER 03/11/18 Chucho Herron MD [address] [place] [address] Physician NEUROMUSCULOSKELETAL MEDICINE 02/08/22 documented as of this encounter
--- OUTSIDE RECORDS SUMMARY | 2024-10-08 16:30 | XMS_ITS | Encounter Summary ---
Author Organization [facility] Address [facility] [place] [address] Care Team Providers Care Fitter Helper Name Role Phone LeonardoLisa perryrafael Bonner [facility] Primary Care Provider + Chucho Herron MD Unavailable [phone] Verona Courtney PT Unavailable Encounter Details Date Type Department Care Team (Late st Contact Info) Description 07/25/2021 MyCHyper[employer]t Message Enc [facility] Medical Group General Surgery - [place] [address] [facility], [address] [place] [address] Gilson Golden MD [address] [facility] [address] [address] Specimen E and F Social History Tobacco Use Types Packs/Day Years Used Date Smoking Tobacco: Never Smokeless Tobacco: Never Alcohol Use Standard Drinks/Week Comments Not Currently [...] please move on to questions 3-9 0 05/13/2021 Comments No Sex and Gender Information Value Date Recorded Sex Assigned at Female 03/01/2024 8:58 AM SOUND EQUIPMENT MECHANIC Legal Sex Female 5:04 PM SOUND EQUIPMENT MECHANIC Gender Identity Not on file Sexual Orientation Not on file COVID-19 Exposure Response Date Recorded In the last 10 days, have yo u been in contact with someone who was confirmed or suspected to have Coronavirus/COVID-19? No / Unsure 07/24/2021 9:40 AM CDT documented as of this encounter Functional Status * RETIRED Are you deaf or do you have serious difficulty hearing Answer Date of Assessment Author Status No 01/24/2021 1:47 PM SOUND EQUIPMENT MECHANIC Activ e * RETIRED Are you blind or do you have serious difficulty seeing, even when wearing glasses? Answer Date of Assessment Author Status No 01/24/2021 1:47 PM SOUND EQUIPMENT MECHANIC Activ e * Do you have serious difficulty walking or climbing stairs? Answer Date of Assessment Author Status No 01/24/2021 1:47 PM SOUND EQUIPMENT MECHANIC Mitali Elmore, ARLEN Active * Do you have difficulty dressing or bathing? Answer Date of Assessment Author Status No 01/24/2021 1:47 PM SOUND EQUIPMENT MECHANIC Mitali Elmore, RN Active * Because of a physical, mental, or emotional condition, do you have difficulty doing errands alone such as visiting a doctor's office or shopping? Answer Date of Assessment Author Status No 01/24/2021 1:47 PM SOUND EQUIPMENT MECHANIC Mitali Elmore, RN Active documented as of this encounter Mental Status * Because of a physical, mental, or emotional condition, do you have serious difficulty concentrating, remembering, or making decisions? Answer Entry Date Author Status No 01/24/2021 1:47 PM SOUND EQUIPMENT MECHANIC Mitali Elmore, RN Active documented in this encounter Progress Notes * Eliud Anderson MA - 07/28/2021 12:43 PM CDT Lm for patient to call me back. documented in this encounter Plan of Treatment Upcoming Encounters Date Type Department Care Team (Late st Contact Info) Description 10/18/2024 9:00 AM CDT Appointment [facility] Services [address] [place] [address] Carmelo Curiel MD [address] [facility] [address] [place] [address] 11/15/2024 9:00 AM CDT Appointment [facility] [address] [facility] [place] [address] Carmelo Curiel MD [address] [facility] [address] [place] [address] 11/21/2024 9:00 AM CDT Office Visit [facility] Medical Group Multispecialty Care - [facility] [address] [facility], [address] [facility] [place] [address] Chucho Herron MD 3 [facility] [place] [address] 12/13/2024 9:00 AM SOUND EQUIPMENT MECHANIC Appointment [facility] [address] [place] [address] Carmelo Curiel MD [address] [facility] [address] [place] [address] documented as of this encounter Visit Diagnoses Not on filedocumented in this encounter Additional Health Concerns Infection Onset Date Last Indicated Resolved Time COVID-19 Rule Out 04/16/2023 04/16/2023 04/16/2023 10:43 AM SOUND EQUIPMENT MECHANIC Influenza - Seasonal 04/16/2023 04/16/2023 024 12:32 AM CDT Assessment Noted Time PHQ-9 Depression Total Score: 12 022 2:49 PM CDT documented as of this encounter Care Teams Fitter Helper Relationship Specialty Start Date End Date Karyn Patterson, SERGEANT OF CORRECTIONS- [address] [facility], [address] [place] [address] PCP - General NURSE PRACTITIONER 03/11/18 Chucho Herron MD [address] [place] [address] Physician NEUROMUSCULOSKELETAL MEDICINE 02/08/22 Verona Courtney, LETITIA [address] [place] [address] Physical Therapist PHYSICAL THERAPY 09/01/22 11/07/22 documented as of this encounter
--- OUTSIDE RECORDS SUMMARY | 2024-10-08 16:30 | XMS_ITS | Encounter Summary ---
Author Organization [facility] Address [facility] [place] [address] Care Team Providers Care Councilperson Name Role Phone LeonardoKaryn perry Ha [facility] Primary Care Provider + Chucho Herron MD Unavailable [phone] Encounter Details Date Type Department Care Team (Late st Contact Info) Description 06/30/2023 Hospital Orders Only [facility] Day [facility] [address] [place], [place] [id number] Carmelo Curiel MD [address] [facility] [address] [place] [address] Social History Tobacco Use Types Packs/Day Years [...] Date Recorded Patient Health Questionnaire-2 Score 0 06/01/2023 Comments No Sex and Gender Information Value Date Recorded Sex Assigned at Female 03/01/2024 8:58 AM [employer] Legal Sex Female 5:04 PM [employer] Gender Identity Not on file Sexual Orientation Not on file documented as of this encounter Functional Status * RETIRED Are you deaf or do you have serious difficulty hearing Answer Date of Assessment Author Status No 01/24/2021 1:47 PM [employer] Activ e * RETIRED Are you blind or do you have serious difficulty seeing, even when wearing glasses? Answer Date of Assessment Author Status No 01/24/2021 1:47 PM [employer] Activ e * Do you have serious difficulty walking or climbing stairs? Answer Date of Assessment Author Status No 01/24/2021 1:47 PM Mitali Brito, ARLEN Active * Do you have difficulty dressing or bathing? Answer Date of Assessment Author Status No 01/24/2021 1:47 PM Mitali Brito, RN Active * Because of a physical, mental, or emotional condition, do you have difficulty doing errands alone such as visiting a doctor's office or shopping? Answer Date of Assessment Author Status No 01/24/2021 1:47 PM Mitali Brito, RN Active documented as of this encounter Mental Status * Because of a physical, mental, or emotional condition, do you have serious difficulty concentrating, remembering, or making decisions? Answer Entry Date Author Status No 01/24/2021 1:47 PM Mitali Brito, RN Active documented in this encounter Plan of Treatment Upcoming Encounters Date Type Department Care Team (Late st Contact Info) Description 10/18/2024 9:00 AM CDT Appointment [facility] [place] [facility] [address] [place] [address] Carmelo Curiel MD [address] [facility] [address] [place] [id number] 11/15/2024 9:00 AM CDT Appointment [facility] [address] [place] [address] Carmelo Curiel MD [address] [facility] [address] [place] [address] 11/21/2024 9:00 AM CDT Office Visit [facility] Multispecial[facility] - [facility] [address] [facility], [address] [place] [address] Chucho Herron MD [address] [place] [address] 12/13/2024 9:00 AM [employer] Appointment [facility] [address] [place] [address] Carmelo Curiel MD [address] [facility] [address] [place] [address] documented as of this encounter Visit Diagnoses Not on filedocumented in this encounter Additional Health Concerns Assessment Noted Time PHQ-9 Depression Total Score: 12 022 2:49 PM CDT documented as of this encounter Care Teams Councilperson Relationship Specialty Start Date End Date Karyn Patterson, [facility]- [address] [facility], [address] [place] [address] PCP - General NURSE PRACTITIONER 03/11/18 Chucho Herron MD [address] [place] [address] Physician NEUROMUSCULOSKELETAL MEDICINE 02/08/22 documented as of this encounter
--- OUTSIDE RECORDS SUMMARY | 2024-10-08 16:30 | XMS_ITS | Encounter Summary ---
Author Organization [facility] Address [facility] [place] [address] Care Team Providers Care Excavator Backhoe Operator Name Role Phone Karyn Patterson [facility] Primary Care Provider + Chucho Herron MD Unavailable [phone] Encounter Details Date Type Department Care Team (Latest Contact Info) Description 02/27/2023 Clean Mobile Message [address] [phone] Karyn Patterson, [facility] [address] [place] [phone] comprehensive food sensitivities test Labs Social History Tobacco Use Types Packs/Day Years [...] Date Recorded Patient Health Questionnaire-2 Score 0 02/26/2023 Comments No Sex and Gender Information Value Date Recorded Sex Assigned at Female 03/01/2024 8:58 AM [employer]SEED [employer] Legal Sex Female 5:04 PM [employer] Gender Identity Not on file Sexual Orientation Not on file documented as of this encounter Functional Status * RETIRED Are you deaf or do you have serious difficulty hearing Answer Date of Assessment Author Status No 01/24/2021 1:47 PM [employer] REFIN[employer] Activ e * RETIRED Are you blind or do you have serious difficulty seeing, even when wearing glasses? Answer Date of Assessment Author Status No 01/24/2021 1:47 PM [employer]SEED OIL REFINER Activ e * Do you have serious difficulty walking or climbing stairs? Answer Date of Assessment Author Status No 01/24/2021 1:47 PM Mitali Brito, ARLEN Active * Do you have difficulty dressing or bathing? Answer Date of Assessment Author Status No 01/24/2021 1:47 PM Mitali Brito, ARLEN Active * Because of a physical, mental, [...] Info) Description 10/18/2024 9:00 AM CDT Appointment [facility] [address] [place] [address] Carmelo Curiel MD [address] [facility] [address] [place] [address] 11/15/2024 9:00 AM CDT Appointment [facility] [address] [place] [address] Carmelo Curiel MD [address] [facility] [address] [place] [address] 11/21/2024 9:00 AM CDT Office Visit [facility] Medical [facility] Multispecialty Care - [facility] [address] [facility], [address] [place] [address] Chucho Herron MD [address] [place] [address] 12/13/2024 9:00 AM LINSEED OIL REFINER Appointment [facility] Day [facility] [address] [place] [address] Carmelo Curiel MD [address] [facility] [address] [place] [address] documented as of this encounter Visit Diagnoses Not on filedocumented in this encounter Additional Health Concerns Infection Onset Date Last Indicated Resolved Time COVID-19 Rule Out 04/16/2023 04/16/2023 04/16/2023 10:43 AM [employer]ED OIL REFINER Influenza - Seasonal 04/16/2023 04/16/2023 024 12:32 AM CDT Assessment Noted Time PHQ-9 Depression Total Score: 12 022 2:49 PM CDT documented as of this encounter Care Teams Excavator Backhoe Operator Relationship Specialty Start Date End Date Karyn Patterson, [facility]- [address] [facility], [facility] [address] [place] [address] PCP - General NURSE PRACTITIONER 03/11/18 Chucho Herron MD [address] [place] [address] Physician NEUROMUSCULOSKELETAL MEDICINE 02/08/22 documented as of this encounter
--- OUTSIDE RECORDS SUMMARY | 2024-10-08 16:30 | XMS_ITS | Clinical Summary ---
Author Organization [facility] Address [facility] [place] [address] Care Team Providers Care Waitstaff Captain Name Role Phone LeonardoLisa taylorrafael Bonner [facility] Primary Care Provider + Chucho Herron MD Unavailable [phone] Allergies Active Allergy Reactions Criticality Noted Date Comments Azithromycin GI Upset 03/18/2018 Montelukast Other (see comment) 03/18/2018 Possible allergy- pt not sure Medications ENBREL SURECLICK 50 MG/ML Solution Auto-injector injection 2 Active Magnesium 200 MG Chew Tab Active ZINC ACETATE OR Acti ve cetirizine (ZYRTEC) 10 MG tablet Take 1 tablet (10 mg total) by mouth daily. Active albuterol sulfate HFA (PROAIR HFA) 108 (90 Base) MCG/ACT inhalerIndicati ons:LOPEZ (dyspnea on exertion) Inhale 1 puff into the lungs every 4 (four) hours as needed for Shortness of breath. Proair 18 g 5 Active EPINEPHrine 0.3 MG/0.3ML injectionIndica tions:Anaphylac tic shock due to peanuts Inject 0.3 mLs (0.3 mg total) into the muscle as needed for Anaphylaxis. 1 each 5 Active estradiol (CLIMARA) 0.025 MG/24HR Place 1 patch (0.025 mg total) onto the skin once a week. 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 Food intolerance 01/08/2022 RA (rheumatoid arthritis) ([facility]) 07/09 Preeclampsia ([facility]) 01/24/2021 ([facility]) 05/05/2019 LOPEZ (dyspnea on exertion) 01/02/2019 Physical deconditioning 01/02/2019 Environmental and seasonal allergies 01/02/2019 Gastroesophageal reflux dise ase, esophagitis presence not specified 01/02/2019 Mild intermittent reactive a irway disease without complication ([facility]) 01/02/2019 Cubital tunnel syndrome on right 05/06/2018 Posterior tibial tendinitis of right lower extre mity 04/06/2018 Encounters Date Type Department Care Team Description 09/20/2024 9:05 AM CDT - 09/20/2024 9:50 AM CDT Hospital Encounter [facility] [address] [place] [address] Carmelo Curiel MD Discharge Disposition: Home or Self Care (Routine Discharge) 09/20/2024 Travel 08/23/2024 9:27 AM CDT - 08/23/2024 10:14 AM CDT Hospital Encounter [facility] [address] [place] [address] Carmelo Curiel MD Discharge Disposition: Home or Self Care (Routine Discharge) 08/23/2024 Travel 07/26/2024 8:52 AM CDT - 07/26/2024 9:42 AM CDT Hospital Encounter [facility] [place] [address] [place] [address] Carmelo Curiel MD Discharge Disposition: Home or Self Care (Routine Discharge) 07/26/2024 Travel 07/20/2024 Results Follow-Up [facility] [address] [facility] [place] [place] [address] Karyn Patterson FNP-CARLIE C-REACTIVE PROTEIN, SED RATE, ERYTHROCYTE (ESR), RHEUMATOID FACTOR, QUANT, Additional followed-up results: 10 07/19/2024 10:10 AM CDT - 07/19/2024 11:59 PM CDT Hospital Encounter [facility] [address] [facility] [place] [address] Karyn Patterson FNP-BC Discharge Disposition: Home or Self Care (Routine Discharge) 07/19/2024 9:17 AM CDT - 07/19/2024 10:09 AM CDT Hospital Encounter [facility] [address] [place] [address] Carmelo Curiel MD Discharge Disposition: Home or Self Care (Routine Discharge) 07/19/2024 Travel 07/13/2024 MyChart Message Enc [facility] [address] [place] [address] Karyn Patterson FNP-BC can I have new blood tests ordered? 07/12/2024 9:01 AM CDT - 07/12/2024 9:50 AM CDT Hospital Encounter [facility] [address] [place] [address] Carmelo Curiel MD Discharge Disposition: Home or Self Care (Routine Discharge) 07/12/2024 MyChart Message [facility]pecialty Care - [facility] [address] [facility], [address] [place] [address] Chucho Herron MD paperwork (All family?) for my to be able to help me get to doctor apointments 07/12/2024 Travel from Last 3 Months Immunizations Immunization Administration Dates Next Due Fluzone 6 Months+ Quad (0.5 mL Prefilled Syringe ) 01/10/2021,12/28/2018 PFIZER COVID-19 (ORIGINAL FO RMULATION, PURPLE CAP) mRNA, LNP-S, PF, 30 MCG/0.3 ML DOSE 06/11/2020,05/17/2020 Tdap (Adacel) 01/10/2021 Family History Medical History Relation Comments Demacular disease Maternal Grandmother Heart Attack Maternal Grandmother Stroke Maternal Grandmother Arthritis Paternal Grandfather Cancer Paternal Grandfather Leukemia Paternal Grandfather Other Paternal Grandfather Relation Status Comments Brother Alive Father Alive Maternal Grandmother Mother Alive Paternal Grandfather Sister 1 Alive Sister 2 Alive Social History Tobacco Use Types Packs/Day Years Used Date Smoking Tobacco: Never Passive Smoke Exposure: Never Smokeless Tobacco: Never Tobacco Cessation:Counseling Given: Yes Alcohol Use Standard Drinks/Week Comments Yes 0 [...] Sex Assigned at Female 03/01/2024 8:58 AM MEDICATION AID Legal Sex Female 5:04 PM MEDICATION AID Gender Identity Not on file Sexual Orientation Not on file Last Filed Vital Signs Vital Sign Reading Time Taken Comments Blood Pressure 109/64 09/20/2024 9:05 AM CDT Pulse 81 09/20/2024 9:05 AM CDT Temperature 36.6 C (97.9 F) 09/20/2024 9:05 AM CDT Respiratory Rate 18 09/20/2024 9:05 AM CDT Oxygen Saturation 98% 09/20/2024 9:05 AM CDT Inhaled Oxygen Concentration - - Weight 73.9 kg (163 lb) 09/20/2024 9:05 AM CDT Height 152.4 cm (5') 09/20/2024 9:05 AM CDT Body Mass Index 31.83 09/20/2024 9:05 AM CDT Plan of Treatment Upcoming Encounters Date Type Department Care Team (Late st Contact Info) Description 10/18/2024 9:00 AM CDT Appointment [facility] [address] [facility] [address] Carmelo Curiel MD [address] [facility] [address] [place] [address] 11/15/2024 9:00 AM CDT Appointment [facility] [address] [place] [address] Carmelo Curiel MD [address] [facility] [address] [place] [address] 11/21/2024 9:00 AM CDT Office Visit [facility] Multispecialty Care - [facility] [address] [facility], [address] [place] [address] Chucho Herron MD [address] [facility] [place] [address] 12/13/2024 9:00 AM MEDICATION AID Appointment [facility] [address] [place] [address] Carmelo Curiel MD [address] [facility] [address] [place] [address] Health Maintenance Due Date Last Done Comments Hepatitis C 2004 Hepatitis B Vaccines (1 of 3 - 19+ 3-dose series) 2005 Pneumococcal Vaccine: Pediatrics (0 to 5 Years) and At-Risk Patients (6 to 49 Years) (1 of 2 - PCV) 2005 HPV Vaccines (1 - 3-dose SCD M series) 2013 Cervical Cancer Screening Pa p with HPV Testing (Age 30 to 64) Every 5 Years 2016 Cervical Cancer Screening Pa p Smear (Age 30 to 64) Every 3 Years 07/13/2023 07/12/2020 Cervical Cancer Screening with HPV 07/13/2023 Annual Physical 08/07/2023 08/06/2022 COVID-19 Vaccine (3 - 2023-2 5 season) 2024 06/11/2020, 05/17/2020 Postponed from 10/10/2023 (Patient Refused) DTaP, Tdap and Td Vaccines ( 2 - Td or Tdap) 01/10/2031 01/10/2021 PHQ-2 (Physician Prospect) Completed 06/05/2024 Meningococcal B Vaccine Aged Out No l onger eligible based on patient's age to complete this topic Meningococcal Vaccine Aged Out No jamie gokul eligible based on patient's age to complete this topic RSV Immunizations Under 20 Months Aged Out No longer eligible b ased on patient's age to complete this topic Procedures Procedure Name Priority Date/Time Associated Diagnosis Comments COMPREHENSIVE METABOLIC PANEL Routine 07/19/2024 10:29 AM CDT Fatigue, unspecified type Perimenopausal PROLACTIN Routine 07/19/2024 10:29 AM CDT Fatigue, unspecified type Perimenopausal ESTRADIOL Routine 07/19/2024 10:29 AM CDT Fatigue, unspecified type Perimenopausal PROGESTERONE Routine 07/19/2024 10:29 AM CDT Fatigue, unspecified type Perimenopausal INSULIN,TOTAL Routine 07/19/2024 10:29 AM CDT Fatigue, unspecified type Perimenopausal FSH, FOLLICLE STIM HORMONE Routine 07/19/2024 10:29 AM CDT Fatigue, unspecified type Perimenopausal SEX HORMONE BINDING GLOBULIN Routine 07/19/2024 10:29 AM CDT Fatigue, unspecified type Perimenopausal DIHYDROTESTOSTERONE, DHT Routine 07/19/2024 10:29 AM CDT Fatigue, unspecified type Perimenopausal PREGNENOLONE, LC/MS/MS Routine 10:29 AM CDT Fatigue, unspecified type Perimenopausal RHEUMATOID FACTOR, QUANT Routine 07/19/2024 10:29 AM CDT Fatigue, unspecified type Perimenopausal SED RATE, ERYTHROCYTE (ESR) Routine 07/19/2024 10:29 AM CDT Fatigue, unspecified type Perimenopausal C-REACTIVE PROTEIN Routine 07/19/2024 10 :29 AM CDT Fatigue, unspecified type Perimenopausal DHEA-SULFATE Routine 07/19/2024 10:29 AM CDT Elevated DHEA OUTSIDE CYTOPATH CERV/VAG INTERPRET (PAP) (SCAN ORDER) 07/12/2020 from Last 3 Months or Most Recently Relevant to Health Maintenance Results * PREGNENOLONE, LC/MS/MS (07/19/2024 10:29 AM CDT) PREGNENOLONE 116 22 - 237 ng/dL 07/29/2024 2:23 PM CDT [employer] THOMAS BROWN Comment: This test was developed and its analytical performance characteristics have been determined by [employer]. It has not been cleared or approved by the FDA. This assay has been validated pursuant to the CLIA regulations and is used for clinical purposes. Test performed by [employer] [address] [place] [address] Backup Operator: Selene Flores MD,PHD,DELFINO Test Reported by Ernestine Sesay, [employer], [address] [place], [place] Kumar Hough M.D., Ph.D., Director of Laboratories , CLIA [id number] 07/19/2024 10:2 9 AM CDT us Karyn Patterson [facility] Final Re sult [facility] [address] [place], [place] , [place] [phone] * RHEUMATOID FACTOR, QUANT (07/19/2024 10:29 AM CDT) RHEUMATOID FACTOR <10 <15 IU/ML 07/19/2024 8:17 PM CDT [facility] 07/19/2024 10:2 9 AM CDT Karyn Bonner Leonardo [facility] Final Re sult [facility] [address] [place] [address], [place] [phone] * SEX HORMONE BINDING GLOBULIN (07/19/2024 10:29 AM CDT) SEX HORMONE BINDING GLOBULIN 35 17 - 124 nmol/L 07/22/2024 12:00 PM CDT [employer] PAULKENDAL LY Comment: Test Performed by [employer]Ernestine, [employer] [facility], [address] [place] [address] Kumar Hough M.D., Ph.D., Director of Laboratories , [facility] [id number] 07/19/2024 10:2 9 AM CDT Karyn Ha Patterson [facility] Final Re sult [facility] [address] [place], [place] , [place] [phone] * SED RATE, ERYTHROCYTE (ESR) (07/19/2024 10:29 AM CDT) ESR 4 <20 MM/HR 07/19/2024 12:27 PM CDT [facility] 07/19/2024 10:2 9 AM CDT Karyn Patterson [facility] Final Re sult [facility] [address] [place] [address], [place] [phone] * (ABNORMAL) COMPREHENSIVE METABOLIC PANEL (07/19/2024 10:29 AM CDT) Pathologist [facility] GLUCOSE 88 70 - 99 MG/DL 07/19/2024 1:04 PM CDT [facility] BUN 13 7 - 18 MG/DL 07/19/2024 1:04 PM CDT [facility] CREATININE S/P/B 0.90 0.55 - 1.02 MG/DL 07/19/2024 1:04 PM CDT [facility] SODIUM S/P/B 142 136 - 145 MMOL/L 07/19/2024 1:04 PM CDT [facility] POTASSIUM S/P/B 4.3 3.5 - 5.1 MMOL/L 07/19/2024 1:04 PM T [facility] CHLORIDE S/P/B 103 100 - 108 MMOL/L 07/19/2024 1:04 PM T [facility] CO2 32.7(H) 21 - 32 MMOL/L 07/19/2024 1:04 PM T [facility] CALCIUM S/P/B 8.9 8.5 - 10.1 MG/DL 07/19/2024 1:04 PM T [facility] BILIRUBIN TOTAL S/P/B 0.5 0.2 - 1.2 MG/DL 07/19/2024 1:04 PM CDT [facility] Comment: THIS ASSAY IS NOT RECOMMENDED FOR PATIENTS UNDERGOING TREATMENT WITH ELTROMBOPAG DUE TO THE POTENTIAL FOR FALSELY ELEVATED RESULTS. TOTAL PROTEIN S/P/B 7.7 6.4 - 8.2 G/DL 07/19/2024 1:04 PM CDT [facility] ALBUMIN S/P/B 3.8 3.4 - 5.0 G/DL 07/19/2024 1:04 PM T [facility] AST 11(L) 15 - 37 U/L 07/19/2024 1:04 PM T [facility] ALT 18 14 - 55 U/L 07/19/2024 1:04 PM T [facility] ALKALINE PHOSPHATASE S/P/B 74 50 - 136 U/L 07/19/2024 1:04 PM T [facility] ANION GAP 6.3 5 - 15 MMOL/L 07/19/2024 1:04 PM [facility] BUN CREATININE RATIO 14.4 6 - 26 07/19/2024 1:04 PM [facility] A/G RATIO 1.0 1.0 - 2.0 RATIO 07/19/2024 1:04 PM [facility] GFR ESTIMATE 84(L) >90 ML/MIN/1.7 3 M2 07/19/2024 1:04 PM [facility] Comment: NOTE: eGFR is not calculated for patients <18 years of age. This is an estimated GFR calculation using the new CKD EPI creatinine equation without race and so does not require a correction factor for race. This estimated GFR should not be used for calculating drug doses. 07/19/2024 10:2 9 AM CDT Karyn Patterson [facility] Final Re sult [facility] [address] [place] [address], * FSH, FOLLICLE STIM HORMONE (07/19/2024 10:29 AM CDT) FSH 7.3 MIU/ML 07/19/2024 8:17 PM CDT [facility] Comment: REFERENCE RANGES FOR FEMALES: FOLLICULAR 3.5-12.5 MID-CYCLE 4.7-21.5 LUTEAL 1.7-7.7 POSTMENOPAUSAL 25.8-134.8 07/19/2024 10:2 9 AM CDT Karyn Ha Patterson [facility] Final Re sult [facility] [address] [place] [address], [place] [phone] * ESTRADIOL (07/19/2024 10:29 AM CDT) ESTRADIOL (E2) 33 see note pg/mL 07/21/2024 10:16 PM CDT [employer] THOMAS BROWN Comment: Unable to flag abnormal [...] males, pre-pubertal children, and hypogonadal/post-menopausal females), the [employer] Estradiol, Ultrasensitive, LCMSMS assay is recommended (order code 41228). Please note: Patients being treated with the drug fulvestrant [Faslodex(R)] have demonstrated significant interference in immunoassay methods for estradiol measurement. The cross reactivity could lead to falsely elevated estradiol test results leading to an inappropriate clinical assessment of estrogen status. [facility] order code [id number], Ultrasensitive LC/MS/MS demonstrates negligible cross reactivity with fulvestrant. Test Performed by Ernestine Sesay [employer], [address] [place], [place] Kumar Hough M.D., Ph.D., Director of Laboratories , CLIA [id number] 07/19/2024 10:2 9 AM CDT Karyn Patterson [facility] Final Re sult Performing Organization Address City/[facility]/ZIP Co de Phone Number [employer] [address] , [place] [phone] * DIHYDROTESTOSTERONE, DHT (07/19/2024 10:29 AM CDT) [facility] DIHYDROTESTOSTERONE LCMSM 9 < OR = 20 ng/dL 07/27/2024 12:02 AM CDT [facility] [employer] [facility]GF[facility]RIC[facility] MONIQUE Comment: This test was developed and its analytical performance characteristics have been determined by [facility]. It has not been cleared or approved by the FDA. This assay has been validated pursuant to the CLIA regulations and is used for clinical purposes. Test performed by [employer] [place] [id number] Backup Operator: Seelne Flores MD,PHD,DELFINO Test Reported by [employer], [employer] [facility], [address] [place] [address] Kumar Hough M.D., Ph.D., Director of Laboratories , CLIA [id number] 07/19/2024 10:2 9 AM CDT Karyn Riceegler [facility] Final Re sult Performing Organization Address City/[facility]/ZIP Co de Phone Number [employer] [address] , [place] [phone] * (ABNORMAL) DHEA-SULFATE (07/19/2024 10:29 AM CDT) DHEA SULFATE 469(H) 23 - 266 mcg/dL 07/22/2024 12:00 PM CDT [employer] THOMAS LY Comment: Test Performed by Ernestine Sesay, [employer] [facility], [address] [place], [place] Kuamr Hough M.D., Ph.D., Director of Laboratories , [facility] [id number] 07/19/2024 10:2 9 AM CDT Karyn Patterson [facility] Final Re sult [employer] [facility] [address] [place] [address], [place] [phone] * (ABNORMAL) C-REACTIVE PROTEIN (07/19/2024 10:29 AM CDT) C-REACTIVE PROTEIN 0.30(H) <0.3 mg/dL 07/19/2024 1:04 PM CDT [facility] 07/19/2024 10:2 9 AM CDT Karyn Patterson [facility] Final Re sult [facility] [address] [place] [address], [place] [phone] * PROGESTERONE (07/19/2024 10:29 AM CDT) PROGESTERONE 0.9 see note ng/mL 07/21/2024 10:16 PM CDT [employer] THOMAS LY Comment: Unable to flag abnormal result(s), please refer to reference range(s) below: Female: Follicular Phase <1.0 ng/mL Luteal Phase 2.6 - 21.5 ng/mL Post Menopausal <0.5 ng/mL : 1st Trimester 4.1 - 34.0 ng/mL 2nd Trimester 24.0 - 76.0 ng/mL 3rd Trimester 52.0 -302.0 ng/mL Test Performed by [employer], [employer], [address] [place] [address] Kumar Hough M.D., Ph.D., Director of Laboratories , CLIA [id number] 07/19/2024 10:2 9 AM CDT Karyn Patterson [facility] Final Re sult Performing Organization Address City/[facility]/ZIP Co de Phone Number Baby Blendy[address] , [place] [phone] * INSULIN,TOTAL (07/19/2024 10:29 AM CDT) INSULIN 7.4 <=18.4 uIU/mL 07/21/2024 10:16 PM CDT [employer] THOMAS LY Comment: Risk: Optimal < or = 18.4 Moderate NA High >18.4 Adult cardiovascular event risk category cut points (optimal, moderate, high) are based on Insulin Reference interval studies performed at [facility] in 2021. Test Performed by [employer], [employer], [address] [place] [address] Kumar Hough M.D., Ph.D., Director of Laboratories , CLIA [id number] 07/19/2024 10:2 9 AM CDT Karyn Patterson [facility] Final Re sult Performing Organization Address City/[facility]/ZIP Co de Phone Number Baby BlendyInteligistics[address] , [place] [phone] * PROLACTIN (07/19/2024 10:29 AM CDT) PROLACTIN 3.8 NG/ML 07/19/2024 8:17 PM CDT [facility] Comment:FEMALE REFERENCE RAN GE (NON-): 4.8-23.3 07/19/2024 10:2 9 AM CDT Karyn Patterson [facility] Final Re sult [facility] [address] [place] [address], * PAP SMEAR (07/12/2020) 07/12/2020 [facility] Scanned SCANNING Final Resu lt from Last 3 Months or Most Recently Relevant to Health Maintenance Insurance Advance Directives * Full Code (Latest Code Status on File) Date Activated Date Inactivated Comments 01/25/2021 8:49 AM 01/28/2021 3:20 PM * Full Code Date Activated Date Inactivated Comments 01/24/2021 2:50 PM 01/25/2021 8:49 AM * Full Code Date Activated Date Inactivated Comments 01/24/2021 1:00 PM 01/24/2021 2:50 PM * Full Code Date Activated Date Inactivated Comments 05/05/2019 10:43 AM 05/08/2019 6:32 PM * Full Code Date Activated Date Inactivated Comments 05/05/2019 9:08 AM 05/05/2019 10:43 AM Care Teams Waitstaff Captain Relationship Specialty Start Date End Date Karyn Patterson, [facility]- [address] [facility], [address] [place] [address] PCP - General NURSE PRACTITIONER 03/11/18 Chucho Herron MD [address] [place] [address] Physician NEUROMUSCULOSKELETAL MEDICINE 02/08/22
--- OUTSIDE RECORDS SUMMARY | 2024-10-08 16:30 | XMS_ITS | Encounter Summary ---
Author Organization [facility] Address [facility] [place] [address] Care Team Providers Care Textile Coating Machine Operator Name Role Phone Karyn Patterson [facility] Primary Care Provider + Chucho Herron MD Unavailable [phone] Encounter Details Date Type Department Care Team (Late st Contact Info) Description 02/26/[address] Teli[employer] [address] [address] [facility] [address] [place] [address] Stool Lab results with parasite type Social History Tobacco Use Types Packs/Day Years [...] Sex Assigned at Female 03/01/2024 8:58 AM SUPERVISOR FISHING Legal Sex Female 5:04 PM SUPERVISOR FISHING Gender Identity Not on file Sexual Orientation Not on file documented as of this encounter Functional Status * RETIRED Are you deaf or do you have serious difficulty hearing Answer Date of Assessment Author Status No 01/24/2021 1:47 PM SUPERVISOR FISHING Activ e * RETIRED Are you blind or do you have serious difficulty seeing, even when wearing glasses? Answer Date of Assessment Author Status No 01/24/2021 1:47 PM SUPERVISOR FISHING Activ e * Do you have serious difficulty walking or climbing stairs? Answer Date of Assessment Author Status No 01/24/2021 1:47 PM Mitali Brito, RN Active * Do you have difficulty dressing or bathing? Answer Date of Assessment Author Status No 01/24/2021 1:47 PM Mitali Brito, ARLEN Active * Because of a physical, mental, or emotional condition, do you have difficulty doing errands alone such as visiting a doctor's office or shopping? Answer Date of Assessment Author Status No 01/24/2021 1:47 PM Mitali Brito, RN Active * Over the past 2 weeks, how often have you been bothered by any of the following problems? Question Answer Date of Assessment Author Status Little interest or pleasure in doing things Not at all 02/26/2023 11:03 AM Tatyana Avalos Active Feeling down, depressed, or hopeless Not at all 02/26/2023 11:03 AM Tatyana Avalos Active Patient Health Questionnaire-2 Score 0 02/26/2023 11:03 AM Tatyana Avalos Active documented as of this encounter Mental [...] Info) Description 10/18/2024 9:00 AM CDT Appointment [facility] [address] [place] [address] Carmelo Curiel MD [address] [place] [address] 11/15/2024 9:00 AM CDT Appointment [facility] [address] [place] [address] Carmelo Curiel MD [address] [facility] [address] [place] [address] 11/21/2024 9:00 AM CDT Office Visit [facility] Multispecialty Care - [facility] [address] [facility], [address] [place] [address] Chucho Herron MD [address] [place], [place] [id number] 12/13/2024 9:00 AM SUPERVISOR FISHING Appointment [facility] Services [address] [place] [address] Carmelo Curiel MD [address] [facility] [address] [place] [address] documented as of this encounter Visit Diagnoses Not on filedocumented in this encounter Additional Health Concerns Infection Onset Date Last Indicated Resolved Time COVID-19 Rule Out 04/16/2023 04/16/2023 04/16/2023 10:43 AM SUPERVISOR FISHING Influenza - Seasonal 04/16/2023 04/16/2023 024 12:32 AM CDT Assessment Noted Time PHQ-9 Depression Total Score: 12 022 2:49 PM CDT documented as of this encounter Care Teams Textile Coating Machine Operator Relationship Specialty Start Date End Date Karyn Patterson, [employer] SUPER[employer]OR- [address] [facility] [address] [place] [address] PCP - General NURSE PRACTITIONER 03/11/18 Chucho Herron MD [address] [place], [place] [id number] Physician NEUROMUSCULOSKELETAL MEDICINE 02/08/22 documented as of this encounter
--- OUTSIDE RECORDS SUMMARY | 2024-10-08 16:30 | XMS_ITS | Encounter Summary ---
Author Organization [facility] Address [facility] [place] [address] Care Team Providers Care Wind Farm Support Specialist Name Role Phone Karyn Patterson Ha [facility] Primary Care Provider + Chucho Herron MD Unavailable [phone] Encounter Details Date Type Department Care Team (Latest Contact Info) Description 07/12/2024 MyChart Message Enc [facility] Medical Group Multispecialty Care - [facility] 3 [facility], [address] [place] [address] Chucho Herron MD 3 [place], [place] [phone] paperwork (All family?) for my to be able to help me get to doctor apointments Social History Tobacco Use Types Packs/Day Years [...] Sex Assigned at Female 03/01/2024 8:58 AM FABRICATION SUPERVISOR Legal Sex Female 5:04 PM FABRICATION SUPERVISOR Gender Identity Not on file Sexual Orientation Not on file documented as of this encounter Functional Status * RETIRED Are you deaf or do you have serious difficulty hearing Answer Date of Assessment Author Status No 01/24/2021 1:47 PM FABRICATION SUPERVISOR Activ e * RETIRED Are you blind or do you have serious difficulty seeing, even when wearing glasses? Answer Date of Assessment Author Status No 01/24/2021 1:47 PM FABRICATION SUPERVISOR Activ e * Do you have serious difficulty walking or climbing stairs? Answer Date of Assessment Author Status No 01/24/2021 1:47 PM Mitali Brito RN Active * Do you have difficulty [...] 01/24/2021 1:47 PM Mitali Brito, ARLEN Active documented in this encounter Plan of Treatment Upcoming Encounters Date Type Department Care Team (Late st Contact Info) Description 10/18/2024 9:00 AM CDT Appointment [facility] [address] [place] [address] Carmelo Curiel MD [address] [address] 11/15/2024 9:00 AM CDT Appointment [facility] [address] [place] [address] Carmelo Curiel MD [address] [address] 11/21/2024 9:00 AM CDT Office Visit [facility] Medical Group Multispecialty Care - [facility] 3 [facility], [address] [place] [address] Chucho Herron MD 3 [place] [address] 12/13/2024 9:00 AM FABRICATION SUPERVISOR Appointment [facility] [address] [place] [address] Carmelo Curiel MD 9401 [facility] [address] [place], [place] [address] documented as of this encounter Visit Diagnoses Not on filedocumented in this encounter Additional Health Concerns Assessment Noted Time PHQ-9 Depression Total Score: 12 022 2:49 PM CDT documented as of this encounter Care Teams Wind Farm Support Specialist Relationship Specialty Start Date End Date Karyn Patterson, [facility] [address], [facility] 112 [place] [address] PCP - General NURSE PRACTITIONER 03/11/18 Chucho Herron MD 3 [place] [address] Physician NEUROMUSCULOSKELETAL MEDICINE 02/08/22 documented as of this encounter
--- OUTSIDE RECORDS SUMMARY | 2024-10-08 16:30 | XMS_ITS | Encounter Summary ---
Author Organization [facility] Address [facility] [place] [address] Care Team Providers Care News Internship Name Role Phone Karyn Patterson [facility] Primary Care Provider + Chucho Herron MD Unavailable [phone] Encounter Details Date Type Department Care Team (Late st Contact Info) Description 04/15/2023 [employer] Message [facility] [address] [place] [phone] Karyn Patterson, [facility] [address] [address] 3 kids and Dominique sick Social History Tobacco Use Types Packs/Day Years [...] Date Recorded Patient Health Questionnaire-2 Score 0 04/16/2023 Comments No Sex and Gender Information Value Date Recorded Sex Assigned at Female 03/01/2024 8:58 AM PROPERTY CLAIM REP Legal Sex Female 5:04 PM PROPERTY CLAIM REP Gender Identity Not on file Sexual Orientation Not on file documented as of this encounter Functional Status * RETIRED Are you deaf or do you have serious difficulty hearing Answer Date of Assessment Author Status No 01/24/2021 1:47 PM PROPERTY CLAIM REP Activ e * RETIRED Are you blind or do you have serious difficulty seeing, even when wearing glasses? Answer Date of Assessment Author Status No 01/24/2021 1:47 PM PROPERTY CLAIM REP Activ e * Do you have serious difficulty walking or climbing stairs? Answer Date of Assessment Author Status No 01/24/2021 1:47 PM PROPERTY CLAIM REP Mitali Elmore, ARLEN Active * Do you have difficulty dressing or bathing? Answer Date of Assessment Author Status No 01/24/2021 1:47 PM PROPERTY CLAIM REP Mitali Elmore, ARLEN Active * Because of a physical, mental, or emotional condition, do you have difficulty doing errands alone such as visiting a doctor's office or shopping? Answer Date of Assessment Author Status No 01/24/2021 1:47 PM Mitali Brito, ARLEN Active * Over the past 2 weeks, how often have you been bothered by any of the following problems? Question Answer Date of Assessment Author Status Little interest or pleasure in doing things Not at all 04/16/2023 10:19 AM PROPERTY CLAIM REP Sharon Douglass MA Active Feeling down, depressed, or hopeless Not at all 04/16/2023 10:19 AM Angélica Oropeza MA Active Patient Health Questionnaire-2 Score 0 04/16/2023 10:19 AM Ivonne Oropeza MA Active documented as of this encounter Mental Status * Because of a physical, mental, or emotional condition, do you have serious difficulty concentrating, remembering, or making decisions? Answer Entry Date Author Status No 01/24/2021 1:47 PM Mitali Brito, RN Active documented in this encounter Progress Notes * Charmaine Martinez RN - 04/16/2023 10:33 AM CST Patients seen in the office today ERTY CLAIM REP documented in this encounter Plan of Treatment Upcoming Encounters Date Type Department Care Team (Late st Contact Info) Description 10/18/2024 9:00 AM CDT Appointment [facility] [address] [place] [address] Carmelo Curiel MD 9401 [facility] 112 [place] [address] 11/15/2024 9:00 AM CDT Appointment [facility] 9515 [place] [address] Carmelo Curiel MD 9401 [facility] 112 [place] [address] 11/21/2024 9:00 AM CDT Office Visit [facility] Medical Group Multispecialty Care - [facility] 3 [facility], [address] [place] [address] Chucho Herron MD 3 [place] [address] 12/13/2024 9:00 AM PROPERTY CLAIM REP Appointment [facility] 9515 [place] [address] Carmelo Curiel MD [address] [address] documented as of this encounter Visit Diagnoses Not on filedocumented in this encounter Additional Health Concerns Infection Onset Date Last Indicated Resolved Time COVID-19 Rule Out 04/16/2023 04/16/2023 04/16/2023 10:43 AM PROPERTY CLAIM REP Influenza - Seasonal 04/16/2023 04/16/2023 024 12:32 AM CDT Assessment Noted Time PHQ-9 Depression Total Score: 12 022 2:49 PM CDT documented as of this encounter Care Teams News Internship Relationship Specialty Start Date End Date Karyn Patterson, STATISTICAL REPORTING ANALYST- [address] [place] [address] 112 [place] [address] PCP - General NURSE PRACTITIONER 03/11/18 Chucho Herron MD 3 [place] [address] Physician NEUROMUSCULOSKELETAL MEDICINE 02/08/22 documented as of this encounter
--- OUTSIDE RECORDS SUMMARY | 2024-10-08 16:31 | XMS_ITS | Encounter Summary ---
Author Organization [facility] Address [facility] [place] [address] Care Team Providers Care Motion Picture Set Grip Name Role Phone Leonardo Karyn Bonner [facility] Primary Care Provider + Chucho Herron MD Unavailable [phone] Verona Courtney PT Unavailable Encounter Details Date Type Department Care Team (Late st Contact Info) Description 05/19/2021 [employer] Message [address] [address] [facility] Social History Tobacco Use Types Packs/Day Years [...] Sex Assigned at Female 03/01/2024 8:58 AM WATER PLANT PUMP OPERATOR Legal Sex Female 5:04 PM WATER PLANT PUMP OPERATOR Gender Identity Not on file Sexual Orientation Not on file COVID-19 Exposure Response Date Recorded In the last 10 days, have yo u been in contact with someone who was confirmed or suspected to have Coronavirus/COVID-19? No / Unsure 05/15/2021 3:21 PM CDT documented as of this encounter Functional Status * RETIRED Are you deaf or do you have serious difficulty hearing Answer Date of Assessment Author Status No 01/24/2021 1:47 PM WATER PLANT PUMP OPERATOR Activ e * RETIRED Are you blind or do you have serious difficulty seeing, even when wearing glasses? Answer Date of Assessment Author Status No 01/24/2021 1:47 PM WATER PLANT PUMP OPERATOR Activ e * Do you have serious [...] 1:47 PM Mitali Brito, ARLEN Active documented as of this encounter Mental [...] Info) Description 10/18/2024 9:00 AM CDT Appointment [facility] Day [facility] [address] [place] [address] Carmelo Curiel MD [address] [address] 11/15/2024 9:00 AM CDT Appointment [facility] [address] [place] [address] Carmelo Curiel MD [address] [address] 11/21/2024 9:00 AM CDT Office Visit [facility]pecialty Care - [facility] 3 [facility], [address] [place] [address] Chucho Herron MD 3 [place] [address] 12/13/2024 9:00 AM WATER PLANT PUMP OPERATOR Appointment [facility] Day [facility] [address] [place] [address] Carmelo Curiel MD 9401 [facility] 112 [place] [address] documented as of this encounter Visit Diagnoses Not on filedocumented in this encounter Additional Health Concerns Infection Onset Date Last Indicated Resolved Time COVID-19 Rule Out 07/24/2021 07/24/2021 07/24/2021 10:22 AM CDT COVID-19 Rule Out 04/16/2023 04/16/2023 04/16/2023 10:43 AM WATER PLANT PUMP OPERATOR Influenza - Seasonal 04/16/2023 04/16/2023 024 12:32 AM CDT Assessment Noted Time PHQ-9 Depression Total Score: 12 022 2:49 PM CDT documented as of this encounter Care Teams Motion Picture Set Grip Relationship Specialty Start Date End Date Karyn Patterson, [facility]- 9401 [facility] 112 [place] [address] PCP - General NURSE PRACTITIONER 03/11/18 Chucho Herron MD 3 [place] [address] Physician NEUROMUSCULOSKELETAL MEDICINE 02/08/22 Verona Courtney, PT 9515 [place] [address] Physical Therapist PHYSICAL THERAPY 09/01/22 11/07/22 documented as of this encounter
--- OUTSIDE RECORDS SUMMARY | 2024-10-08 16:31 | XMS_ITS | Encounter Summary ---
Author Organization [facility] Address [facility] [place] [address] Care Team Providers Care Associate Professor Of Music Name Role Phone Karyn Patterson [facility] Primary Care Provider + Chucho Herron MD Unavailable [phone] Encounter Details Date Type Department Care Team (Late st Contact Info) Description 11/18/2023 [employer] Message [address] [phone] [facility] [address] [address] Hormones / Blood test Social History Tobacco Use Types Packs/Day Years [...] Sex Assigned at Female 03/01/2024 8:58 AM CLINICAL APPLICATION MANAGER Legal Sex Female 5:04 PM CLINICAL APPLICATION MANAGER Gender Identity Not on file Sexual Orientation Not on file documented as of this encounter Functional Status * RETIRED Are you deaf or do you have serious difficulty hearing Answer Date of Assessment Author Status No 01/24/2021 1:47 PM CLINICAL APPLICATION MANAGER Activ e * RETIRED Are you blind or do you have serious difficulty seeing, even when wearing glasses? Answer Date of Assessment Author Status No 01/24/2021 1:47 PM CLINICAL APPLICATION MANAGER Activ e * Do you have serious [...] 9:00 AM CDT Appointment [facility] [address]15 [place] [address] Carmelo Curiel MD 9401 [facility] [address] [place] [address] 11/15/2024 9:00 AM CDT Appointment [facility] Day [facility] [address]15 [facility] [place] [address] Carmelo Curiel MD 9401 [facility] [address] [place] [address] 11/21/2024 9:00 AM CDT Office Visit [facility] Medical Group Multispecialty Care - [facility] 3 [facility], [address] [place] [address] Chucho Herron MD 3 [place] [address] 12/13/2024 9:00 AM CLINICAL APPLICATION MANAGER Appointment [facility] Day [facility] [address] [place] [address] Carmelo Curiel MD 9401 [facility] [address] [place] [address] documented as of this encounter Visit Diagnoses Not on filedocumented in this encounter Additional Health Concerns Assessment Noted Time PHQ-9 Depression Total Score: 12 022 2:49 PM CDT documented as of this encounter Care Teams Associate Professor Of Music Relationship Specialty Start Date End Date Karyn Patterson, [facility] 9401 [facility] 112 [place] [address] PCP - General NURSE PRACTITIONER 03/11/18 Chucho Herron MD 3 [place] [address] Physician NEUROMUSCULOSKELETAL MEDICINE 02/08/22 documented as of this encounter
--- OUTSIDE RECORDS SUMMARY | 2024-10-08 16:31 | XMS_ITS | Encounter Summary ---
Author Organization [facility] Address [facility]2 [place] [address] Care Team Providers Care Lumber Carrier Name Role Phone Karyn Patterson Ha [facility] Primary Care Provider + Chucho Herron MD Unavailable [phone] Verona Courtney PT Unavailable Encounter Details Date Type Department Care Team (Late st Contact Info) Description 06/03/2022 Prep for Procedure [facility] [address] [place] [phone] [id number] Adela Wooten MD Three [facility] [address] [place] [address] Social History Tobacco Use Types Packs/Day Years [...] Date Recorded Patient Health Questionnaire-2 Score 0 05/26/2022 Comments No Sex and Gender Information Value Date Recorded Sex Assigned at Female 03/01/2024 8:58 AM PAIN MANAGEMENT NURSE PRACTITIONER Legal Sex Female 5:04 PM PAIN MANAGEMENT NURSE PRACTITIONER Gender Identity Not on file Sexual Orientation Not on file COVID-19 Exposure Response Date Recorded In the last 10 days, have yo u been in contact with someone who was confirmed or suspected to have Coronavirus/COVID-19? No / Unsure 06/03/2022 12:18 PM CDT documented as of this encounter Functional Status * RETIRED Are you deaf or do you have serious difficulty hearing Answer Date of Assessment Author Status No 01/24/2021 1:47 PM PAIN MANAGEMENT NURSE PRACTITIONER Activ e * RETIRED Are you blind or do you have serious difficulty seeing, even when wearing glasses? Answer Date of Assessment Author Status No 01/24/2021 1:47 PM PAIN MANAGEMENT NURSE PRACTITIONER Activ e * Do you have serious difficulty walking or climbing stairs? Answer Date of Assessment Author Status No 01/24/2021 1:47 PM PAIN MANAGEMENT NURSE PRACTITIONER Mitali Elmore, ARLEN Active * Do you have difficulty dressing or bathing? Answer Date of Assessment Author Status No 01/24/2021 1:47 PM PAIN MANAGEMENT NURSE PRACTITIONER Mitali Elmore, RN Active * Because of a physical, mental, or emotional condition, do you have difficulty doing errands alone such as visiting a doctor's office or shopping? Answer Date of Assessment Author Status No 01/24/2021 1:47 PM PAIN MANAGEMENT NURSE PRACTITIONER Mitali Elmore, RN Active documented as of this encounter Mental Status * Because of a physical, mental, or emotional condition, do you have serious difficulty concentrating, remembering, or making decisions? Answer Entry Date Author Status No 01/24/2021 1:47 PM PAIN MANAGEMENT NURSE PRACTITIONER Mitali Elmore, RN Active documented in this encounter Plan of Treatment Upcoming Encounters Date Type Department Care Team (Late [facility] Info) Description 10/18/2024 9:[address] [facility] One Day Services [address]15 [place] [address] Carmelo Curiel MD 9261 [facility] [address] [place], [place] [phone] 11/15/2024 9:[address] [facility] Day [facility] 9515 [place] [address] Carmelo Curiel MD 3416 [facility] [address] [place] [address] 11/21/2024 9:00 AM CDT Office Visit [facility] Medical Group Multispecialty Care - [facility] 3 [facility], [address] [place] [address] Chucho Herron MD 3 [place] [address] 12/13/2024 9:00 AM PAIN MANAGEMENT NURSE PRACTITIONER Appointment [facility] Day Services [address] [place] [address] Carmelo Curiel MD [address] [address] documented as of this encounter Visit Diagnoses Not on filedocumented in this encounter Additional Health Concerns Infection Onset Date Last Indicated Resolved Time COVID-19 Rule Out 04/16/2023 04/16/2023 04/16/2023 10:43 AM PAIN MANAGEMENT NURSE PRACTITIONER Influenza - Seasonal 04/16/2023 04/16/2023 024 12:32 AM CDT Assessment Noted Time PHQ-9 Depression Total Score: 12 022 2:49 PM CDT documented as of this encounter Care Teams Lumber Carrier Relationship Specialty Start Date End Date Karyn Patterson FNP- 9401 [facility] 112 [place] [address] PCP - General NURSE PRACTITIONER 03/11/18 Chucho Herron MD 3 [place] [address] Physician NEUROMUSCULOSKELETAL MEDICINE 02/08/22 Verona Courtney, PT [address]15 [place] [address] Physical Therapist PHYSICAL THERAPY 09/01/22 11/07/22 documented as of this encounter
--- OUTSIDE RECORDS SUMMARY | 2024-10-08 16:31 | XMS_ITS | Encounter Summary ---
Author Organization [facility] Address [facility] [place] [address] Care Team Providers Care Union Steward Name Role Phone Karyn Patterson [facility] Primary Care Provider + Chucho Herron MD Unavailable [phone] Verona Courtney PT Unavailable Encounter Details Date Type Department Care Team (Late Contact Info) Description 04/28/2018 Abstract [facility] [address] [place] [address] , Teja Lopez MD Social History Tobacco Use Types Packs/Day Years Used Date Smoking Tobacco: Never Smokeless Tobacco: Never Alcohol Use Standard Drinks/Week Comments Yes 0 (1 standard drink = 0.6 oz pur e alcohol) OCCASIONAL Comments No Sex and Gender Information Value Date Recorded Sex Assigned at Female 03/01/2024 8:58 AM LINOTYPE MACHINIST Legal Sex Female 5:04 PM LINOTYPE MACHINIST Gender Identity Not on file Sexual Orientation Not on file documented as of this encounter Plan of Treatment Upcoming Encounters Date Type Department Care Team (Late Contact Info) Description 10/18/2024 9:00 AM CDT Appointment [facility] [address] [place], [place] [phone] Carmelo Curiel MD [address] [place] [address] 11/15/2024 9:00 AM CDT Appointment [facility] One Day Services 95[address] [place] [address] Carmelo Curiel MD 9401 [facility] [address] [place] [address] 11/21/2024 9:00 AM CDT Office Visit [facility] Medical Group Multispecialty Care - [facility] 3 [facility], [address] [place] [address] Chucho Herron MD 3 [place] [address] 12/13/2024 9:00 AM LINOTYPE MACHINIST Appointment [facility] Day Services [address] [place] [address] Carmelo Curiel MD 9401 [facility] [address] [place] [address] documented as of this encounter Visit Diagnoses Not on filedocumented in this encounter Additional Health Concerns Infection Onset Date Last Indicated Resolved Time COVID-19 Rule Out 07/24/2021 07/24/2021 07/24/2021 10:22 AM CDT COVID-19 Rule Out 04/16/2023 04/16/2023 04/16/2023 10:43 AM LINOTYPE MACHINIST Influenza - Seasonal 04/16/2023 04/16/2023 024 12:32 AM CDT documented as of this encounter Care Teams Union Steward Relationship Specialty Start Date End Date Karyn Patterson, MOLD WASHER- 9401 [facility] 112 [place] [address] PCP - General NURSE PRACTITIONER 03/11/18 Chucho Herron MD 3 [place] [address] Physician NEUROMUSCULOSKELETAL MEDICINE 02/08/22 Verona Courtney, PT [address] [place] [address] Physical Therapist PHYSICAL THERAPY 09/01/22 11/07/22 documented as of this encounter
--- OUTSIDE RECORDS SUMMARY | 2024-10-08 16:31 | XMS_ITS | Encounter Summary ---
Author Organization [facility] System Address [facility] [place] [address] Care Team Providers Care Glue Specialty Supervisor Name Role Phone Karyn Patterson [facility] Primary Care Provider + Chucho Herron MD Unavailable [phone] Verona Courtney PT Unavailable Encounter Details Date Type Department Care Team (Late st Contact Info) Description 06/01/2022 MyChart Message Enc [facility] Medical Group Multispecialty Care - [facility] [address] [facility], [address] [place] [phone] Chucho Herron MD 3 [place] [address] paper work Social History Tobacco Use Types Packs/Day Years [...] Sex Assigned at Female 03/01/2024 8:58 AM INFORMATION CLERK BROKERAGE Legal Sex Female 5:04 PM INFORMATION CLERK BROKERAGE Gender Identity Not on file Sexual Orientation Not on file COVID-19 Exposure Response Date Recorded In the last 10 days, have lona u been in contact with someone who was confirmed or suspected to have Coronavirus/COVID-19? No / Unsure 06/03/2022 12:18 PM CDT documented as of this encounter Functional Status * RETIRED Are you deaf or do you have serious difficulty hearing Answer Date of Assessment Author Status No 01/24/2021 1:47 PM INFORMATION CLERK BROKERAGE Activ e * RETIRED Are you blind or do you have serious difficulty seeing, even when wearing glasses? Answer Date of Assessment Author Status No 01/24/2021 1:47 PM INFORMATION CLERK BROKERAGE Activ e * Do you have serious difficulty walking or climbing stairs? Answer Date of Assessment Author Status No 01/24/2021 1:47 PM INFORMATION CLERK BROKERAGE Mitali Elmore, ARLEN Active * Do you have difficulty dressing or bathing? Answer Date of Assessment Author Status No 01/24/2021 1:47 PM INFORMATION CLERK BROKERAGE Mitali Elmore, RN Active * Because of a physical, mental, or emotional condition, do you have difficulty doing errands alone such as visiting a doctor's office or shopping? Answer Date of Assessment Author Status No 01/24/2021 1:47 PM INFORMATION CLERK BROKERAGE Mitali Elmore, RN Active documented as of this encounter Mental Status * Because of a physical, mental, or emotional condition, do you have serious difficulty concentrating, remembering, or making decisions? Answer Entry Date Author Status No 01/24/2021 1:47 PM INFORMATION CLERK BROKERAGE Mitali Elmore, RN Active documented in this encounter Plan of Treatment Upcoming Encounters Date Type Department Care Team (Late st Contact Info) Description 10/18/2024 9:00 AM CDT Appointment [facility] Day [facility] [address] [place] [address] Carmelo Curiel MD [address] [facility] [address] [place] [address] 11/15/2024 9:00 AM CDT Appointment [facility] [address] [place] [address] Carmelo Curiel MD [address] [place] [address] 11/21/2024 9:00 AM CDT Office Visit [facility] Medical Group Multispecialty Care - [facility] [address], [address] [place] [address] Chucho Herron MD 3 [place] [address] 12/13/2024 9:00 AM INFORMATION CLERK BROKERAGE Appointment [facility] [address] [place] [address] Carmelo Curiel MD [address] [place] [address] documented as of this encounter Visit Diagnoses Not on filedocumented in this encounter Additional Health Concerns Infection Onset Date Last Indicated Resolved Time COVID-19 Rule Out 04/16/2023 04/16/2023 04/16/2023 10:43 AM INFORMATION CLERK BROKERAGE Influenza - Seasonal 04/16/2023 04/16/2023 024 12:32 AM CDT Assessment Noted Time PHQ-9 Depression Total Score: 12 022 2:49 PM CDT documented as of this encounter Care Teams Glue Specialty Supervisor Relationship Specialty Start Date End Date Karyn Patterson, INTERIOR DESIGN PROGRAM CHAIR- [address] [facility], [facility] [address] [place] [address] PCP - General NURSE PRACTITIONER 03/11/18 Chucho Herron MD [address] [place], [place] [address] Physician NEUROMUSCULOSKELETAL MEDICINE 02/08/22 Verona Courtney, PT [address] [place] [address] Physical Therapist PHYSICAL THERAPY 09/01/22 11/07/22 documented as of this encounter
--- OUTSIDE RECORDS SUMMARY | 2024-10-08 16:31 | XMS_ITS | Encounter Summary ---
Author Organization [facility] System Address [facility] [place] [address] Care Team Providers Care Peoplesoft Fscm Developer Name Role Phone LeonardoKaryn perry Ha [facility] Primary Care Provider + Chucho Herron MD Unavailable [phone] Verona Courtney PT Unavailable Encounter Details Date Type Department Care Team (Late st Contact Info) Description 07/03/2022 Therapy Plan [facility] One [address] [address] Victoria Causey MD [address] [place] [address] [address] [place] [address] Social History Tobacco Use Types Packs/Day Years [...] Sex Assigned at Female 03/01/2024 8:58 AM FLATBED STITCHER Legal Sex Female 5:04 PM FLATBED STITCHER Gender Identity Not on file Sexual Orientation Not on file COVID-19 Exposure Response Date Recorded In the last 10 days, have yo u been in contact with someone who was confirmed or suspected to have Coronavirus/COVID-19? No / Unsure 06/26/2022 1:49 PM CDT documented as of this encounter Functional Status * RETIRED Are you deaf or do you have serious difficulty hearing Answer Date of Assessment Author Status No 01/24/2021 1:47 PM FLATBED STITCHER Activ e * RETIRED Are you blind or do you have serious difficulty seeing, even when wearing glasses? Answer Date of Assessment Author Status No 01/24/2021 1:47 PM FLATBED STITCHER Activ e * Do you have serious [...] documented in this encounter Progress Notes * Teresa Whipple RN - 05/26/2024 2:25 PM CDT [facility] IT Mixing Team called to Oupatient Allergy Treatments with instructions for new serum startingMay 2024. Allergy serum is being mailed out 05/26/2024. Patient serum is to be given: July 05- give allergy serum dose:0.15 July 12- give allergy serum dose: 0.3 July 19-give allergy serum dose: 0.5 July 26-give allergy serum dose: 0.5 Then proceed to monthly until serum expires. Telephone orders, Lily Franco [facility] Allergy & Immunology documented in this encounter Plan of Treatment Upcoming Encounters Date Type Department Care Team (Late st Contact Info) Description 10/18/2024 9:00 AM CDT Appointment [facility] [address] [place] [address] Carmelo Curiel MD [address] [facility] [address] [place] [address] 11/15/2024 9:00 AM CDT Appointment [facility] [address] [place] [address], [place] [address] Carmelo Curiel MD [address] [facility] [address] [place] [address] 11/21/2024 9:00 AM CDT Office Visit [facility] Medical Group Multispecialty Care - [facility] [address], [address] [place] [address] Chucho Herron MD [address] [facility] [place] [address] 12/13/2024 9:00 AM FLATBED STITCHER Appointment [facility] Day [facility] [address] [place] [address], [place] [address] Carmelo Curiel MD [address] [facility] [address] [place] [address] documented as of this encounter Visit Diagnoses Diagnosis Seasonal allergic rhinitis, unspecified trigger- Primary documented in this encounter Additional Health Concerns Infection Onset Date Last Indicated Resolved Time COVID-19 Rule Out 04/16/2023 04/16/2023 04/16/2023 10:43 AM FLATBED STITCHER Influenza - Seasonal 04/16/2023 04/16/2023 024 12:32 AM CDT Assessment Noted Time PHQ-9 Depression Total Score: 12 022 2:49 PM CDT documented as of this encounter Care Teams Peoplesoft Fscm Developer Relationship Specialty Start Date End Date Karyn Patterson, CHAIRMAN & CO FOUNDER- [address] [facility] [[email or web address] [address] [place] [address] PCP - General NURSE PRACTITIONER 03/11/18 Chucho Herron MD 3 [place] [address] Physician NEUROMUSCULOSKELETAL MEDICINE 02/08/22 Verona Courtney, PT [address] [place] [address] Physical Therapist PHYSICAL THERAPY 09/01/22 11/07/22 documented as of this encounter
--- OUTSIDE RECORDS SUMMARY | 2024-10-08 16:31 | XMS_ITS | Encounter Summary ---
Author Organization [facility] Address [facility] [place] [address] Care Team Providers Care Roll Up Machine Operator Name Role Phone Karyn Patterson [facility] Primary Care Provider + Chucho Herron MD Unavailable [phone] Verona Courtney PT Unavailable Encounter Details Date Type Department Care Team (Late st Contact Info) Description 04/14/2022 [place] Message [facility] [address] [place] [address] Karyn Patterson, [facility] [address] [facility] [address] [place] [address] allergin immuno-therapy Social History Tobacco Use Types Packs/Day Years [...] Date Recorded Patient Health Questionnaire-2 Score 0 03/02/2022 Comments No Sex and Gender Information Value Date Recorded Sex Assigned at Female 03/01/2024 8:58 AM WHEAT GROWER Legal Sex Female 5:04 PM WHEAT GROWER Gender Identity Not on file Sexual Orientation Not on file COVID-19 Exposure Response Date Recorded In the last 10 days, have lona u been in contact with someone who was confirmed or suspected to have Coronavirus/COVID-19? No / Unsure 04/02/2022 11:46 AM WHEAT GROWER documented as of this encounter Functional Status * RETIRED Are you deaf or do you have serious difficulty hearing Answer Date of Assessment Author Status No 01/24/2021 1:47 PM WHEAT GROWER Activ e * RETIRED Are you blind or do you have serious difficulty seeing, even when wearing glasses? Answer Date of Assessment Author Status No 01/24/2021 1:47 PM WHEAT GROWER Activ e * Do you have serious difficulty walking or climbing stairs? Answer Date of Assessment Author Status No 01/24/2021 1:47 PM WHEAT GROWER Mitali Elmore, ARLEN Active * Do you have difficulty dressing or bathing? Answer Date of Assessment Author Status No 01/24/2021 1:47 PM WHEAT GROWER Mitali Elmore, RN Active * Because of a physical, mental, or emotional condition, do you have difficulty doing errands alone such as visiting a doctor's office or shopping? Answer Date of Assessment Author Status No 01/24/2021 1:47 PM WHEAT GROWER Mitali Elmore, RN Active documented as of this encounter Mental Status * Because of a physical, mental, or emotional condition, do you have serious difficulty concentrating, remembering, or making decisions? Answer Entry Date Author Status No 01/24/2021 1:47 PM WHEAT GROWER Mitali Elmore, RN Active documented in this encounter Plan of Treatment Upcoming Encounters Date Type Department Care Team (Late st Contact Info) Description 10/18/2024 9:00 AM CDT Appointment [facility] Day Services [address] [place] [address] Carmelo Curiel MD [address] [facility] [address] [place] [address] 11/15/2024 9:00 AM CDT Appointment [facility] Day [facility] [address] [place] [address] Carmelo Curiel MD [address] [facility] [address] [place] [address] 11/21/2024 9:00 AM CDT Office Visit [facility] Medical Group Multispecialty Care - [facility] [address] [facility], [address] [place] [address] Chucho Herron MD 3 [place] [address] 12/13/2024 9:00 AM WHEAT GROWER Appointment [facility] [address] [place], [place] [id number] Carmelo Curiel MD [address] [facility] [address] [place], [place] [id number] documented as of this encounter Visit Diagnoses Not on filedocumented in this encounter Additional Health Concerns Infection Onset Date Last Indicated Resolved Time COVID-19 Rule Out 04/16/2023 04/16/2023 04/16/2023 10:43 AM WHEAT GROWER Influenza - Seasonal 04/16/2023 04/16/2023 024 12:32 AM CDT Assessment Noted Time PHQ-9 Depression Total Score: 12 022 2:49 PM CDT documented as of this encounter Care Teams Roll Up Machine Operator Relationship Specialty Start Date End Date Karyn Patterson, RESIDENTIAL PEST CONTROL TECHNICIAN- [address] [facility] [address] [place] [address] PCP - General NURSE PRACTITIONER 03/11/18 Chucho Herron MD [address] [place] [address] Physician NEUROMUSCULOSKELETAL MEDICINE 02/08/22 Verona Courtney, PT [address] [place] [address] Physical Therapist PHYSICAL THERAPY 09/01/22 11/07/22 documented as of this encounter
--- OUTSIDE RECORDS SUMMARY | 2024-10-08 16:31 | XMS_ITS | Encounter Summary ---
Author Organization [facility] - [facility] System Address [address] [place] [address] Care Team Providers Care Stereotype Finisher Name Role Phone Karyn Patterson [facility] Primary Care Provider + Chucho Herron MD Unavailable [phone] Verona Courtney PT Unavailable Encounter Details Date Type Department Care Team (Late st Contact Info) Description 03/09/2022 MyChart Message Enc [facility] Medical Group Multispecialty Care - [facility] [address] [facility], [address] [place] [phone] Chucho Herron MD [address] [place] [address] Medical History Social History Tobacco Use Types Packs/Day Years [...] Sex Assigned at Female 03/01/2024 8:58 AM TRANSFER CLERK Legal Sex Female 5:04 PM TRANSFER CLERK Gender Identity Not on file Sexual Orientation Not on file COVID-19 Exposure Response Date Recorded In the last 10 days, have lona esparza been in contact with someone who was confirmed or suspected to have Coronavirus/COVID-19? No / Unsure 03/02/2022 10:10 AM TRANSFER CLERK documented as of this encounter Functional Status * RETIRED Are you deaf or do you have serious difficulty hearing Answer Date of Assessment Author Status No 01/24/2021 1:47 PM TRANSFER CLERK Activ e * RETIRED Are you blind or do you have serious difficulty seeing, even when wearing glasses? Answer Date of Assessment Author Status No 01/24/2021 1:47 PM TRANSFER CLERK Activ e * Do you have serious difficulty walking or climbing stairs? Answer Date of Assessment Author Status No 01/24/2021 1:47 PM TRANSFER CLERK Mitali Elmore, ARLEN Active * Do you have difficulty dressing or bathing? Answer Date of Assessment Author Status No 01/24/2021 1:47 PM TRANSFER CLERK Mitali Elmore, RN Active * Because of a physical, mental, or emotional condition, do you have difficulty doing errands alone such as visiting a doctor's office or shopping? Answer Date of Assessment Author Status No 01/24/2021 1:47 PM TRANSFER CLERK Mitali Elmore, RN Active documented as of this encounter Mental Status * Because of a physical, mental, or emotional condition, do you have serious difficulty concentrating, remembering, or making decisions? Answer Entry Date Author Status No 01/24/2021 1:47 PM TRANSFER CLERK Mitali Elmore, RN Active documented in this encounter Plan of Treatment Upcoming Encounters Date Type Department Care Team (Late st Contact Info) Description 10/18/2024 9:00 AM CDT Appointment [facility] Day [facility] [address] [place] [address] Carmelo Curiel MD [address] [facility] [address] [place] [address] 11/15/2024 9:00 AM CDT Appointment [facility] [address] [place] [address] Carmelo Curiel MD [address] [facility] [address] [place] [address] 11/21/2024 9:00 AM CDT Office Visit [facility] Medical Group Multispecialty Care - [facility] [address] [facility], [address] [place] [address] Chucho Herron MD [address] [place] [address] 12/13/2024 9:00 AM TRANSFER CLERK Appointment [facility] Services [address] [place] [address] Carmelo Curiel MD [address] [facility] [address] [place] [address] documented as of this encounter Visit Diagnoses Not on filedocumented in this encounter Additional Health Concerns Infection Onset Date Last Indicated Resolved Time COVID-19 Rule Out 04/16/2023 04/16/2023 04/16/2023 10:43 AM TRANSFER CLERK Influenza - Seasonal 04/16/2023 04/16/2023 024 12:32 AM CDT Assessment Noted Time PHQ-9 Depression Total Score: 12 022 2:49 PM CDT documented as of this encounter Care Teams Stereotype Finisher Relationship Specialty Start Date End Date Karyn Patterson, CORPORATE DEVELOPMENT ASSOCIATE- [address] [facility], [facility] [address] [place] [address] PCP - General NURSE PRACTITIONER 03/11/18 Chucho Herron MD [address] [place], [place] [address] Physician NEUROMUSCULOSKELETAL MEDICINE 02/08/22 Verona Courtney, PT [address] [place] [address] Physical Therapist PHYSICAL THERAPY 09/01/22 11/07/22 documented as of this encounter
[2024-10-08 16:32] VITALS: BP 129/62; PULSE 85; RESP 18; TEMP 36.5; O2SAT 97
== END 2024-10-08 16:53 | disposition home or self-care (01) ==
PROVIDERS: Emergency Provider Nurse Practitioner Family; PCP Nurse Practitioner
DX: J32.9 Chronic sinusitis, unspecified (principal)
CPT/HCPCS: 99213; G0463